=== PATIENT | female | born 1950 | race Caucasian/White ===

== ENCOUNTER → 2019-02-03 | Outpatient (CLI) | payer MEDICARE ==
--- NOTE | 2019-02-04 15:08 | US ---
EXAMINATION TYPE: US kidneys/renal and bladder DATE OF EXAM: 02/03/2019 COMPARISON: NONE CLINICAL HISTORY: Renal Cyst N28.1. History of kidney stones EXAM MEASUREMENTS: Right Kidney: 11.6 x 5.6 x 5.4 cm Left Kidney: 11.0 x 5.3 x 5.3 cm Difficult and limited study due to patient body habitus Right Kidney: no hydronephrosis, multiple echogenic foci scattered throughout Left Kidney: no hydronephrosis, 1.9 x 1.8 x 2.0cm nearly anechoic area mid pole, multiple echogenic f oci scattered throughout with largest measuring 0.8cm inferior pole Bladder: not fully distended Bilateral Jets seen: left jet not seen IMPRESSION: 1. Bilateral nonobstructing renal calculi measuring up to 0.8 cm on the left. No hydronephrosis of ei ther kidney. 2. 2.0 cm left renal sinus cyst.
== END | disposition home or self-care (01) ==
LOC: RADUSWWP 16:20
PROVIDERS: ATTEND Internal Medicine Nephrology
DX: N20.0 Calculus of kidney (principal); N28.1 Cyst of kidney, acquired
CPT/HCPCS: 76770

== ENCOUNTER 2020-07-15 11:14 | Day surgery (SDC) | payer MEDICARE ==
[2020-07-15 12:36] VITALS: TEMP 97.8
[2020-07-15] MEDS ORDERED: LIDOCAINE 1% (10MG/ML) FOR IV START INTRADERMA ONE (12:45)
[2020-07-15] MEDS ORDERED: LACTATED RINGERS 1,000 ML IV ONE (12:45)
[2020-07-15] MEDS ORDERED: LIDOCAINE 1% INJ 10MG/ML (20 ML MDV) ONE (13:27)
[2020-07-15] MEDS ORDERED: PROPOFOL 10 MG/ML 20 ML VIAL IV ONE (13:27)
--- NOTE | 2020-07-15 13:47 | P.PCN ---
Date of Procedure: 07/15/20 Procedure(s) Performed: BRIEF HISTORY: Patient is a 69-year-old pleasant female scheduled for an elective colonoscopy as a part of screening for colorectal neoplasia. PROCEDURE PERFORMED: Colonoscopy with snare polypectomy. PREOPERATIVE DIAGNOSIS: Screening for colon cancer. IV sedation per Anesthesia. PROCEDURE: After informed consent was obtained, the patient, was brought into the endoscopy unit. IV sedation was administered by Anesthesia under continuous monitoring. Digital rectal examination was normal. Initially the Olympus CF-160 flexible video colonoscope was then inserted in the rectum, gradually advanced into the cecum without any difficulty. Careful examination was performed as the scope was gradually being withdrawn. Ileocecal valve and the appendiceal orifice were visualized and appeared normal. Prep was excellent. Mucosa of the cecum, ascending colon, transverse colon, descending colon, sigmoid colon, appeared normal. In the mid rectum there was a 2 cm broad-based polyp removed by piecemeal snare polypectomy and complete polypectomy was accomplished Retroflexion was performed in the rectum and no lesions were seen. The patient tolerated the procedure well. IMPRESSION: 2 cm broad-based mid rectal polyp status post snare polypectomy Rest of the colon appeared normal RECOMMENDATIONS: Findings of this examination were discussed with the patient as well as her family. She was advised to follow with the biopsy results. If the biopsy shows an adenoma she can have a repeat colonoscopy in 3 years .
[2020-07-15] MEDS ORDERED: LACTATED RINGERS 1,000 ML IV SCH (13:52)
[2020-07-15 14:23] VITALS: BP 132/72; PULSE 67; RESP 20
== END 2020-07-15 14:37 | disposition home or self-care (01) ==
LOC: ORWHC2ENDO 11:14
PROVIDERS: ATTEND Internal Medicine Gastroenterology
DX: Z12.11 Encounter for screening for malignant neoplasm of colon (principal); D12.8 Benign neoplasm of rectum; I10 Essential (primary) hypertension; E78.5 Hyperlipidemia, unspecified; R73.03 Prediabetes; Z79.899 Other long term (current) drug therapy; Z97.2 Presence of dental prosthetic device (complete) (partial); Z88.2 Allergy status to sulfonamides
CPT/HCPCS: 45385; J2001; J2704; 88305

== ENCOUNTER 2021-03-23 18:06 | Emergency (ER) | payer MEDICARE ==
--- NOTE | 2021-03-23 18:46 | CT ---
EXAMINATION TYPE: CT brain cspine wo con DATE OF EXAM: 03/23/2021 COMPARISON: None HISTORY: Fall. CT DLP: 1366.4 mGycm Automated exposure control for dose reduction was used. There is no mass effect or midline shift. There is no sign of intracranial hemorrhage. There is hyper ostosis frontalis. The calvarium is intact. Skull base is intact. IMPRESSION: Negative unenhanced head CT scan.
[2021-03-23 19:53] VITALS: BP 117/66; PULSE 63; RESP 16; TEMP 97.8
--- NOTE | 2021-03-23 19:54 | ED ---
General Adult HPI - General Stated complaint: fall Time Seen by Provider: 03/23/21 18:10 Source: patient, RN notes reviewed Mode of arrival: ambulatory Limitations: no limitations - History of Present Illness Initial comments: 70-year-old female presents emergency Department with chief complaint of fall, head injury. Patient states she tripped and fell discharge her head didn't lose conscious. Patient complains primarily of headache, head pain but no significant neck pain. Denies any. Fever or Chills. Patient denies any extremity pain no blurred vision or focal weakness. - Related Data Home Medications Medication Instructions Recorded Confirmed ARIPiprazole 15 mg PO DAILY 07/15/20 07/15/20 Amoxicillin 875 mg PO DAILY 07/15/20 07/15/20 DULoxetine HCL [Cymbalta] 60 mg PO DAILY 07/15/20 07/15/20 Enalapril Maleate 2.5 mg PO DAILY 07/15/20 07/15/20 Ergocalciferol (Vitamin D2) 50,000 mcg PO WEEKLY 07/15/20 07/15/20 [Vitamin D2 (50,000 Iu)] Simvastatin 80 mg PO DAILY 07/15/20 07/15/20 lamoTRIgine 200 mg PO BID 07/15/20 07/15/20 Allergies Allergy/AdvReac Type Severity Reaction Status Date / Time Sulfa (Sulfonamide Allergy Confusion Verified 07/15/20 12:39 Antibiotics) Review of Systems ROS Statement: Those systems with pertinent positive or pertinent negative responses have been documented in the HPI. ROS Other: All systems not noted in ROS Statement are negative. General Exam General appearance: alert, in no apparent distress Head exam: Present: atraumatic, normocephalic, normal inspection Eye exam: Present: normal appearance, PERRL, EOMI. Absent: scleral icterus, conjunctival injection, periorbital swelling Respiratory exam: Present: normal lung sounds bilaterally. Absent: respiratory distress, wheezes, rales, rhonchi, stridor Cardiovascular Exam: Present: regular rate, normal rhythm, normal heart sounds. Absent: systolic murmur, diastolic murmur, rubs, gallop, clicks Neurological exam: Present: alert, oriented X3, CN II-XII intact, reflexes normal. Absent: motor sensory deficit Skin exam: Present: warm, dry, intact, normal color. Absent: rash Medical Decision Making - Medical Decision Making CT of the brain and C-spine were read no acute abnormality. Patient discharged in stable condition return parameters discussed. Disposition Clinical Impression: Head contusion Disposition: HOME SELF-CARE Condition: Stable Instructions (If sedation given, give patient instructions): Head Injury (ED) Additional Instructions: Please return to the Emergency Department if symptoms worsen or any other concerns. Is patient prescribed a controlled substance at d/c from ED?: No Referrals: Bjorn Velazquez DO [Primary Care Provider] - 1-2 days Time of Disposition: 19:54
== END 2021-03-23 20:40 | disposition home or self-care (01) ==
LOC: EC 18:06
DX: S00.83XA Contusion of other part of head, initial encounter (principal); Z79.899 Other long term (current) drug therapy; W01.0XXA Fall on same level from slipping, tripping and stumbling without subsequent striking against object, initial encounter
CPT/HCPCS: 70450; 72125; 99284

== ENCOUNTER 2021-11-30 00:44 | Emergency (ER) | payer MEDICARE ==
[2021-11-30] MEDS ORDERED: SODIUM CHLORIDE 0.9% 500 ML 500 ML IV STA ×2 (00:49→02:58)
[2021-11-30] MEDS ORDERED: ONDANSETRON 4 MG/2 ML VIAL IVP STA (00:49)
[2021-11-30] MEDS ORDERED: SODIUM CHLORIDE 0.9% 1,000 ML IV STA (00:49)
--- NOTE | 2021-11-30 00:49 | ED ---
Weakness HPI - General Stated complaint: NVD Time Seen by Provider: 11/30/21 00:48 Source: RN notes reviewed, old records reviewed Limitations: no limitations - History of Present Illness Initial comments: This is a 71-year-old female to the emergency department for evaluation patient presents today for nausea vomiting and diarrhea. No pain. Patient states she comes from a facility were 2 other people at the same issue going on right now and has been persistent. Patient has no other complaints no fevers no travel history. Patient has symptoms 3 days very getting worse or not getting better MD Complaint: generalized weakness, lack of energy -: days(s) (3) Location: generalized Severity: moderate Severity scale (1-10): 4 Consistency: constant Improves with: none Worsens with: none Context: recent illness (Nausea vomiting diarrhea), history of similar Associated Symptoms: loss of appetite, nausea/vomiting, other (Diarrhea) - Related Data Home Medications Medication Instructions Recorded Confirmed ARIPiprazole 15 mg PO DAILY 07/15/20 07/15/20 Amoxicillin 875 mg PO DAILY 07/15/20 07/15/20 DULoxetine HCL [Cymbalta] 60 mg PO DAILY 07/15/20 07/15/20 Enalapril Maleate 2.5 mg PO DAILY 07/15/20 07/15/20 Ergocalciferol (Vitamin D2) 50,000 mcg PO WEEKLY 07/15/20 07/15/20 [Vitamin D2 (50,000 Iu)] Simvastatin 80 mg PO DAILY 07/15/20 07/15/20 lamoTRIgine 200 mg PO BID 07/15/20 07/15/20 Allergies Allergy/AdvReac Type Severity Reaction Status Date / Time Sulfa (Sulfonamide Allergy Confusion Verified 11/30/21 00:54 Antibiotics) Review of Systems ROS Statement: Those systems with pertinent positive or pertinent negative responses have been documented in the HPI. ROS Other: All systems not noted in ROS Statement are negative. Past Medical History Past Medical History: Hyperlipidemia, Hypertension Additional Past Medical History / Comment(s): kidney stone History of Any Multi-Drug Resistant Organisms: None Reported Past Surgical History: Cholecystectomy Past Psychological History: Bipolar, Depression Smoking Status: Never smoker Past Alcohol Use History: None Reported Past Drug Use History: None Reported General Exam General appearance: alert, in no apparent distress Head exam: Present: atraumatic, normocephalic, normal inspection Eye exam: Present: normal appearance, PERRL, EOMI. Absent: scleral icterus, conjunctival injection, periorbital swelling ENT exam: Present: normal exam, mucous membranes dry Neck exam: Present: normal inspection. Absent: tenderness, meningismus, lymphadenopathy Respiratory exam: Present: normal lung sounds bilaterally. Absent: respiratory distress, wheezes, rales, rhonchi, stridor Cardiovascular Exam: Present: normal rhythm, tachycardia, normal heart sounds. Absent: systolic murmur, diastolic murmur, rubs, gallop, clicks GI/Abdominal exam: Present: soft, normal bowel sounds. Absent: distended, te nderness, guarding, rebound, rigid Extremities exam: Present: normal inspection, full ROM, normal capillary refill. Absent: tenderness, pedal edema, joint swelling, calf tenderness Back exam: Present: normal inspection Neurological exam: Present: alert, oriented X3, CN II-XII intact Psychiatric exam: Present: normal affect, normal mood Skin exam: Present: warm, dry, intact, normal color. Absent: rash Course Vital Signs 11/30/21 00:47 Temperature 98 F Pulse Rate 115 H Respiratory 18 Rate Blood Pressure 106/87 O2 Sat by Pulse 96 Oximetry - Reevaluation(s) Reevaluation #1: 11/30/21 03:28 Medical record is reviewed Reevaluation #2: 11/30/21 03:28 Patient symptoms are significantly improved here in the ER physician able to eat and drink Reevaluation #3: 11/30/21 03:28 Patient informed of results and questions answered feels good for discharge Medical Decision Making - Medical Decision Making 71 female to the emergency department for evaluation patient presents today for evaluation regards to nausea vomiting and diarrhea with no pain. Patient's mi ldly dehydrated given significant IV resuscitation here in the emergency room feels improved can eat and drink and can be discharged home - Lab Data Result diagrams: 11/30/21 01:19 11/30/21 01:19 Lab Results 11/30/21 11/30/21 11/30/21 Range/Units 01:19 01:19 01:19 WBC 10.2 (3.8-10.6) k/uL RBC 4.15 (3.80-5.40) m/uL Hgb 12.9 (11.4-16.0) gm/dL Hct 41.0 (34.0-46.0) % MCV 98.6 (80.0-100.0) fL MCH 31.1 (25.0-35.0) pg MCHC 31.5 (31.0-37.0) g/dL RDW 12.2 (11.5-15.5) % Plt Count 275 (150-450) k/uL MPV 7.1 Neutrophils % 81 % Lymphocytes % 9 % Monocytes % 5 % Eosinophils % 4 % Basophils % 0 % Neutrophils # 8.3 H (1.3-7.7) k/uL Lymphocytes # 0.9 L (1.0-4.8) k/uL Monocytes # 0.6 (0-1.0) k/uL Eosinophils # 0.4 (0-0.7) k/uL Basophils # 0.0 (0-0.2) k/uL Sodium 140 (137-145) mmol/L Potassium 4.1 (3.5-5.1) mmol/L Chloride 107 (98-107) mmol/L Carbon Dioxide 18 L (22-30) mmol/L Anion Gap 15 mmol/L BUN 32 H (7-17) mg/dL Creatinine 2.28 H (0.52-1.04) mg/dL Est GFR (CKD-EPI)AfAm 24 (>60 ml/min/1.73 sqM) Est GFR (CKD-EPI)NonAf 21 (>60 ml/min/1.73 sqM) Glucose 159 H (74-99) mg/dL Plasma Lactic Acid Lupillo 1.4 (0.7-2.0) mmol/L Calcium 9.0 (8.4-10.2) mg/dL Phosphorus 3.4 (2.5-4.5) mg/dL Magnesium 1.9 (1.6-2.3) mg/dL Total Bilirubin 0.6 (0.2-1.3) mg/dL AST 41 H (14-36) U/L ALT 22 (4-34) U/L Alkaline Phosphatase 136 H (38-126) U/L Total Protein 6.6 (6.3-8.2) g/dL Albumin 4.1 (3.5-5.0) g/dL Lipase 475 H (23-300) U/L Disposition Clinical Impression: Dehydration, Nausea & vomiting, Gastroenteritis Disposition: HOME SELF-CARE Condition: Good Instructions (If sedation given, give patient instructions): Acute Nausea and Vomiting (ED), Acute Diarrhea (ED) Is patient prescribed a controlled substance at d/c from ED?: No Referrals: Bjorn Velazquez DO [Primary Care Provider] - 1-2 days Time of Disposition: 04:00
[2021-11-30 00:54] VITALS: RESP 18
[2021-11-30 01:25] LABS: Basophils % (A) 0 %; Eosinophils # (A) 0.4 k/uL (0-0.7); Eosinophils % (A) 4 %; HGB 12.9 gm/dL (11.4-16.0); Lymphocytes # (A) 0.9 k/uL (1.0-4.8); Lymphocytes % (A) 9 %; MCH 31.1 pg (25.0-35.0); MCHC 31.5 g/dL (31.0-37.0); MCV 98.6 fL (80.0-100.0); Mean Platelet Volume 7.1; Monocytes # (A) 0.6 k/uL (0-1.0); Monocytes % (A) 5 %; Neutrophils # (A) 8.3 k/uL (1.3-7.7); Neutrophils % (A) 81 %; Platelet Count 275 k/uL (150-450); RBC 4.15 m/uL (3.80-5.40); RDW 12.2 % (11.5-15.5); WBC 10.2 k/uL (3.8-10.6)
[2021-11-30 01:41] LABS: Albumin 4.1 g/dL (3.5-5.0); Magnesium 1.9 mg/dL (1.6-2.3); Phosphorus 3.4 mg/dL (2.5-4.5); Potassium 4.1 mmol/L (3.5-5.1); Total Bilirubin 0.6 mg/dL (0.2-1.3); Total Protein 6.6 g/dL (6.3-8.2)
[2021-11-30] MEDS ORDERED: PROCHLORPERAZINE INJ 10 MG/2 ML VIAL IVP STA (03:24)
[2021-11-30] MEDS ORDERED: ONDANSETRON 4 MG ODT STARTER PACK 2 TAB BTL PO STA (03:26)
[2021-11-30 03:55] VITALS: BP 125/56; PULSE 76; TEMP 98.6
== END 2021-11-30 04:07 | disposition home or self-care (01) ==
LOC: EC 00:44
DX: K52.9 Noninfective gastroenteritis and colitis, unspecified (principal); E86.0 Dehydration; Z88.2 Allergy status to sulfonamides
CPT/HCPCS: 36415; 93005; 80053; 83605; 83690; 83735; 84100; 85025; 99285; 96374; 96361; 96375; J0780; J2405; S0119

== ENCOUNTER 2022-02-25 10:17 | Day surgery (SDC) | payer MEDICARE ==
[2022-02-24 10:48] VITALS: BMI 30.9
[~2022-02-25 10:17] MED LIST: LACTATED RINGERS 1,000 ML IV SCH
[2022-02-25 11:06] VITALS: RESP 18; TEMP 97.4
[2022-02-25] MEDS ORDERED: PROPOFOL 10 MG/ML 20 ML VIAL IV ONE (12:00)
[2022-02-25] MEDS ORDERED: LIDOCAINE 2% INJ 20 MG/ML (2 ML VIAL) ONE (12:00)
--- NOTE | 2022-02-25 12:12 | P.PCN ---
Date of Procedure: 02/25/22 Procedure(s) Performed: BRIEF HISTORY: Patient is a 71-year-old, pleasant, white female scheduled for an upper endoscopy as a part of evaluation of epigastric pain for the last 2 months duration. She was recently started on omeprazole 20 mg twice daily and symptoms are gradually improving.. PROCEDURE PERFORMED: Esophagogastroduodenoscopy with biopsy. PREOPERATIVE DIAGNOSIS: Chronic epigastric pain.. IV sedation per anesthesia. PROCEDURE: After informed consent was obtained, the patient was brought into the endoscopy unit. IV sedation was administered by Anesthesia under continuous monitoring. Initially the Olympus GIF-140 video endoscope was inserted into the mouth. Esophagus intubated without any difficulty. It was gradually advanced into the stomach and duodenum and carefully examined. The bulb and the second part of the duodenum appeared normal. The scope at this time was withdrawn to the stomach, adequately insufflated with air, and upon careful examination, mucosa of the antrum, had a 2 cm round, smooth submucosal lesion along the lesser curvature and multiple biopsies were done from this area. Rest of the body, cardia and the fundus appeared normal. The scope was then withdrawn into the esophagus. All hiatal hernia noted. The GE junction was located at 39 cm from the incisors. The esophagus appeared normal. There were no erosions or ulcerations seen, biopsies were done from the distal esophagus and the patient tolerated the procedure well. IMPRESSION: 1. 2 cm round and smooth submucosal lesion in the antrum of the stomach along the lesser curvature status post multiple biopsies 2. Small hiatal hernia but no evidence of esophagitis.. RECOMMENDATIONS: The findings of this examination were discussed with the patient as well as a family. She was advised to follow with the biopsy results. In the meantime she will continue with omeprazole 20 mg twice daily and follow antireflux measures.. Follow up in office in 3-4 weeks.
[2022-02-25 12:32] VITALS: PULSE 66
[2022-02-25 13:51] VITALS: BP 134/81
== END 2022-02-25 13:45 | disposition home or self-care (01) ==
LOC: ORWHC2ENDO 10:17
PROVIDERS: ATTEND Internal Medicine Gastroenterology
DX: K29.50 Unspecified chronic gastritis without bleeding (principal); R10.13 Epigastric pain
CPT/HCPCS: 43239; J2704; J2001; 88305; 88342

== ENCOUNTER → 2022-08-12 | Outpatient (CLI) | payer MEDICARE | END | disposition home or self-care (01) | LOC: LABWHC1 11:39 | PROVIDERS: ATTEND Family Medicine | DX: R73.01 Impaired fasting glucose (principal) | CPT/HCPCS: 36415; 83036 ==

== ENCOUNTER → 2022-10-08 | Outpatient (CLI) | payer MEDICARE ==
--- NOTE | 2022-10-08 13:30 | MR ---
EXAMINATION TYPE: MR brain and iac wo/w con DATE OF EXAM: 10/08/2022 COMPARISON: None HISTORY: Lightheaded and unsteady, dizziness TECHNIQUE: Multiplanar, multisequence images of the brain and brainstem is performed without and with IV contras t, utilizing 9 mL intravenous Gadavist . FINDINGS: Diffusion weighted images demonstrate no evidence of a recent infarct or other diffusion ab normality. There is a faint abnormal signal on T2 within the nery which is felt artifactual. There is a mild generalized degenerative change. Midline structures demonstrate normal morphology. T he craniocervical junction appears within normal limits. Post contrast images demonstrate no abnorma l enhancement. The dural venous sinuses appear patent. The visualized sinuses are clear and the globe s are intact. There is no evidence of cerebellopontine angle mass or acoustic schwannoma. There is hyperostosis fro ntalis interna. IMPRESSION: 1. Degenerative and nonspecific white matter change with no evidence of cerebellopontine angle mass o r acoustic schwannoma.
== END | disposition home or self-care (01) ==
LOC: RADMRIMAIN 08:35
PROVIDERS: ATTEND Otolaryngology
DX: R90.82 White matter disease, unspecified (principal); R42 Dizziness and giddiness
CPT/HCPCS: 70553; A9585

== ENCOUNTER 2022-11-13 13:45 | Emergency (ER) | payer MEDICARE ==
[2022-11-13 13:57] VITALS: RESP 18
[2022-11-13] MEDS ORDERED: SODIUM CHLORIDE 0.9% 1,000 ML IV STA (14:19)
[2022-11-13] MEDS ORDERED: MECLIZINE 12.5 MG TAB PO STA (14:22)
--- NOTE | 2022-11-13 14:52 | ED ---
General Adult HPI - General Chief complaint: Dizziness Stated complaint: Dizziness Time Seen by Provider: 11/13/22 14:09 Source: patient, EMS Mode of arrival: EMS Limitations: no limitations - History of Present Illness Initial comments: Patient is a 72-year-old female who presents from her living facility for vertigo symptoms. She doesn't history of dementia. Is currently alert and oriented 4. States she has a lightheadedness sensation and less than the room spinning sensation. States it is been on and off since . He currently has no symptoms. Denies any known palliative or provocative factors for the symptoms. Denies any chest pain or shortness of breath. Denies any recent injuries. Denies abdominal pain, nausea, vomiting. Denies being on blood thinners. His no other acute complaints at this time. Denies any weakness, nu mbness, lightheadedness. Presents for further evaluation. - Related Data Home Medications Medication Instructions Recorded Confirmed ARIPiprazole 15 mg PO DAILY 07/15/20 02/25/22 DULoxetine HCL [Cymbalta] 60 mg PO DAILY 07/15/20 02/25/22 Simvastatin [Zocor] 80 mg PO DAILY 07/15/20 02/25/22 lamoTRIgine 200 mg PO BID 07/15/20 02/25/22 Aspirin [Adult Low Dose Aspirin EC] 81 mg PO DAILY 02/24/22 02/25/22 Latanoprost/Pf [Latanoprost 0.005% 1 drop BOTH EYES DAILY 02/24/22 02/25/22 Eye Drop] Metoprolol Tartrate 12.5 mg PO BID 02/24/22 02/25/22 Omeprazole 20 mg PO BID 02/24/22 02/25/22 Timolol 0.25% Ophth Soln [Timoptic 1 drop BOTH EYES DAILY 02/24/22 02/25/22 0.25% Ophth Soln] Previous Rx's Medication Instructions Recorded Cephalexin [Keflex] 500 mg PO Q12HR 7 Days #14 cap 11/13/22 Allergies Allergy/AdvReac Type Severity Reaction Status Date / Time Sulfa (Sulfonamide Allergy Confusion Verified 11/13/22 13:57 Antibiotics) Review of Systems ROS Statement: Those systems with pertinent positive or pertinent negative responses have been documented in the HPI. Review of Systems: CONST: Denies fever EYES: Denies blurry vision ENT: Denies nasal congestion C/V: Denies Chest pain RESP: Denies shortness of breath GI: Denies abdominal pain : Denies dysuria SKIN: Denies rash. MSK: Denies joint pain. NEURO: Denies headache ROS Other: All systems not noted in ROS Statement are negative. Past Medical History Past Medical History: GERD/Reflux, Hyperlipidemia, Hypertension Additional Past Medical History / Comment(s): Hx kidney stones. History of Any Multi-Drug Resistant Organisms: None Reported Past Surgical History: Cholecystectomy Additional Past Surgical History / Comment(s): 2 stents for kidney stones, later removed. Past Anesthesia/Blood Transfusion Reactions: No Reported Reaction Past Psychological History: Bipolar, Depression Smoking Status: Never smoker Past Alcohol Use History: None Reported Past Drug Use History: None Reported - Past Family History Mother Family Medical History: Cancer Additional Family Medical History / Comment(s): Skin cancer. Father Family Medical History: Cancer Additional Family Medical History / Comment(s): Skin cancer. General Exam - General Exam Comments Initial Comments: General: Appears in no acute distress. HEAD: Normal with no signs of head trauma. EYES: PERRLA, EOMI, conjunctiva normal, no discharge. Pupils are 2 mm and equal bilaterally. ENT: Hearing grossly intact, normal oropharynx. RESPIRATORY: Clear breath sounds bilaterally. No wheezes, rales, or rhonchi. C/V: Regular rate and rhythm. S1 and S2 auscultated, peripheral pulses 2+ and intact throughout ABD: Abd is soft, nontender, nondistended EXT: Normal range of motion, no obvious deformity SKIN: No rashes or lesions observed on exposed skin. NEURO: Alert and oriented x 4. Cranial nerves II-XII intact. No focal sensory or strength deficits. GCS of 15. NIH of 0. Limitations: no limitations Course Vital Signs 11/13/22 11/13/22 11/13/22 13:50 15:57 16:35 Temperature 98.1 F Pulse Rate 64 65 Pulse Rate [ 65 Pulse Oximetery ] Respiratory 18 18 Rate Blood Pressure 157/75 153/73 Blood Pressure 152/80 [Left Arm Sitting] Blood Pressure 161/74 [Left Arm Standing] Blood Pressure 166/81 [Left Arm Supine] O2 Sat by Pulse 94 L 93 L Oximetry 11/13/22 11/13/22 18:06 19:45 Temperature 98.2 F Pulse Rate 99 75 Pulse Rate [ Pulse Oximetery ] Respiratory 18 18 Rate Blood Pressure 192/75 147/75 Blood Pressure [Left Arm Sitting] Blood Pressure [Left Arm Standing] Blood Pressure [Left Arm Supine] O2 Sat by Pulse 94 L 93 L Oximetry Medical Decision Making - Medical Decision Making Was pt. sent in by a medical professional or institution (, MATHEW, HEALTH CARE ATTORNEY, urgent care, hospital, or fpc...) When possible be specific @ -No Did you speak to anyone other than the patient for history (EMS, parent, family, police, friend...)? What history was obtained from this source @ -No Did you review nursing and triage notes (agree or disagree)? Why? @ -I reviewed and agree with nursing and triage notes Were old charts reviewed (outside hosp., previous admission, EMS record, old EKG, old radiological studies, urgent care reports/EKG's, fpc records)? Report findings @ -No old charts were reviewed Differential Diagnosis (chest pain, altered mental status, abdominal pain women, abdominal pain men, vaginal bleeding, weakness, fever, dyspnea, syncope, headache, dizziness, GI bleed, back pain, seizure, CVA, palpatations, mental health, musculoskeletal)? @ -Differential Dizziness: Benign paroxysmal positional Vertigo, Menieres disease, otitis media, acoustic neuroma, vertebrobasilar insufficiency, cerebellar stroke, encephalitis, hypovolemic, arrhythmia, coronary artery syndrome, anemia, this is not meant to be an all-inclusive list EKG interpreted by me (3pts min.). @ -As above X-rays interpreted by me (1pt min.). @ -Chest x-ray shows no obvious acute cardio bony process. CT interpreted by me (1pt min.). @ -CT brain shows no obvious acute intracranial process or injury. U/S interpreted by me (1pt. min.). @ -None done What testing was considered but not performed or refused? (CT, X-rays, U/S, labs)? Why? @ -None What meds were considered but not given or refused? Why? @ -None Did you discuss the management of the patient with other professionals (professionals i.e. , MATHEW, HEALTH CARE ATTORNEY, lab, RT, psych nurse, addiction social worker, education and training manager, teacher, information security officer, nurse case management)? Give summary @ -No Was smoking cessation discussed for >3mins.? @ -No Was critical care preformed (if so, how long)? @ -No Were there social determinants of health that impacted care today? How? (Homelessness, low income, unemployed, alcoholism, drug addiction, transportation, low edu. Level, literacy, decrease access to med. care, penitentiary, rehab)? @ -No Was there de-escalation of care discussed even if they declined (Discuss DNR or withdrawal of care, Hospice)? DNR status @ -No What co-morbidities impacted this encounter? (DM, HTN, Smoking, COPD, CAD, Cancer, CVA, ARF, Chemo, Hep., AIDS, mental health diagnosis, sleep apnea, morbid obesity)? @ -History of vertigo Was patient admitted / discharged? Hospital course, mention meds given and route, prescriptions, significant lab abnormalities, going to OR and other pertinent info. @ -Patient presents from a group living situation complaining of lightheadedness and vertiginous type symptoms since Wednesday. Currently has no acute complaints at this time. Denies any symptoms. We will obtain basic labs, screening EKG, chest x-ray, vital signs, urinalysis. She'll be given meclizine empirically as well as 1 L fluid bolus. Orthostatic vital signs be obtained after the fluid bolus. Patient was in agreement this plan. EKG showed no signs of acute ischemia.Patient's imaging is unremarkable. Patient's labs are remarkable for CK D unchanged from baseline as well as a borderline UTI. Following fluids, orthostatics were negative. We will give additional fluids if she is still symptomatic and obtain CT imaging. She was in agreement this plan. CT imaging was negative as well. On reevaluation this time she is feeling improved. Symptoms resolved. She would like to go home. I believe is reasonable. We will treat her UTI. She was in agreement this plan. Strict return precautions were discussed. I will provide the patient with a prescription for Keflex. I instructed the patient to follow up with their PCP in the next 1-3 days. I explained that the patient should return to the emergency department if they experience any worsening symptoms. Strict return precautions were discussed with the patient. The patient expressed understanding of these instructions. I answered all questions that the patient had. The patient was discharged home in good condition with their prescriptions and follow up information. Undiagnosed new problem with uncertain prognosis? @ -No Drug Therapy requiring intensive monitoring for toxicity (Heparin, Nitro, Insulin, Cardizem)? @ -No Were any procedures done? @ -No Diagnosis/symptom? @ -Lightheadedness,uti Acute, or Chronic, or Acute on Chronic? @ -Acute Uncomplicated (without systemic symptoms) or Complicated (systemic symptoms)? @ -complicated Side effects of treatment? @ -No Exacerbation, Progression, or Severe Exacerbation? @ -No Poses a threat to life or bodily function? How? (Chest pain, [place], [place], pneumonia, PE, COPD, DKA, ARF, appy, cholecystitis, CVA, Diverticulitis, Homicidal, Suicidal, threat to staff... and all critical care pts) @ -No - Lab Data Result diagrams: 11/13/22 14:30 11/13/22 14:30 Lab Results 11/13/22 11/13/22 11/13/22 Range/Units 14:30 14:30 14:30 WBC 6.7 (3.8-10.6) k/uL RBC 3.96 (3.80-5.40) m/uL Hgb 12.7 (11.4-16.0) gm/dL Hct 38.7 (34.0-46.0) % MCV 97.7 (80.0-100.0) fL MCH 32.2 (25.0-35.0) pg MCHC 32.9 (31.0-37.0) g/dL RDW 12.4 (11.5-15.5) % Plt Count 267 (150-450) k/uL MPV 7.6 Neutrophils % 65 % Lymphocytes % 21 % Monocytes % 6 % Eosinophils % 5 % Basophils % 1 % Neutrophils # 4.3 (1.3-7.7) k/uL Lymphocytes # 1.4 (1.0-4.8) k/uL Monocytes # 0.4 (0-1.0) k/uL Eosinophils # 0.4 (0-0.7) k/uL Basophils # 0.1 (0-0.2) k/uL Sodium 139 (137-145) mmol/L Potassium 4.5 (3.5-5.1) mmol/L Chloride 104 (98-107) mmol/L Carbon Dioxide 26 (22-30) mmol/L Anion Gap 9 mmol/L BUN 34 H (7-17) mg/dL Creatinine 2.05 H (0.52-1.04) mg/dL Est GFR (CKD-EPI)AfAm 27 (>60 ml/min/1.73 sqM) Est GFR (CKD-EPI)NonAf 24 (>60 ml/min/1.73 sqM) Glucose 119 H (74-99) mg/dL Calcium 9.1 (8.4-10.2) mg/dL Magnesium 2.4 H (1.6-2.3) mg/dL Total Bilirubin 0.5 (0.2-1.3) mg/dL AST 21 (14-36) U/L ALT 15 (4-34) U/L Alkaline Phosphatase 99 (38-126) U/L Total Protein 6.9 (6.3-8.2) g/dL Albumin 4.0 (3.5-5.0) g/dL Urine Color Light Yellow Urine Appearance Clear (Clear) Urine pH 7.0 (5.0-8.0) Ur Specific [place] 1.007 (1.001-1.035) Urine Protein Negative (Negative) Urine Glucose (UA) Negative (Negative) Urine Ketones Negative (Negative) Urine Blood Negative (Negative) Urine Nitrite Negative (Negative) Urine Bilirubin Negative (Negative) Urine Urobilinogen <2.0 (<2.0) mg/dL Ur Leukocyte Esterase Moderate H (Negative) Urine RBC 1 (0-5) /hpf Urine WBC 20 H (0-5) /hpf Influenza Type A (PCR) (Not Detectd) Influenza Type B (PCR) (Not Detectd) RSV (PCR) (Not Detectd) SARS-CoV-2 (PCR) (Not Detectd) 11/13/22 Range/Units 14:30 WBC (3.8-10.6) k/uL RBC (3.80-5.40) m/uL Hgb (11.4-16.0) gm/dL Hct (34.0-46.0) % MCV (80.0-100.0) fL MCH (25.0-35.0) pg MCHC (31.0-37.0) g/dL RDW (11.5-15.5) % Plt Count (150-450) k/uL MPV Neutrophils % % Lymphocytes % % Monocytes % % Eosinophils % % Basophils % % Neutrophils # (1.3-7.7) k/uL Lymphocytes # (1.0-4.8) k/uL Monocytes # (0-1.0) k/uL Eosinophils # (0-0.7) k/uL Basophils # (0-0.2) k/uL Sodium (137-145) mmol/L Potassium (3.5-5.1) mmol/L Chloride (98-107) mmol/L Carbon Dioxide (22-30) mmol/L Anion Gap mmol/L BUN (7-17) mg/dL Creatinine (0.52-1.04) mg/dL Est GFR (CKD-EPI)AfAm (>60 ml/min/1.73 sqM) Est GFR (CKD-EPI)NonAf (>60 ml/min/1.73 sqM) Glucose (74-99) mg/dL Calcium (8.4-10.2) mg/dL Magnesium (1.6-2.3) mg/dL Total Bilirubin (0.2-1.3) mg/dL AST (14-36) U/L ALT (4-34) U/L Alkaline Phosphatase (38-126) U/L Total Protein (6.3-8.2) g/dL Albumin (3.5-5.0) g/dL Urine Color Urine Appearance (Clear) Urine pH (5.0-8.0) Ur Specific [place] (1.001-1.035) Urine Protein (Negative) Urine Glucose (UA) (Negative) Urine Ketones (Negative) Urine Blood (Negative) Urine Nitrite (Negative) Urine Bilirubin (Negative) Urine Urobilinogen (<2.0) mg/dL Ur Leukocyte Esterase (Negative) Urine RBC (0-5) /hpf Urine WBC (0-5) /hpf Influenza Type A (PCR) Not Detected (Not Detectd) Influenza Type B (PCR) Not Detected (Not Detectd) RSV (PCR) Not Detected (Not Detectd) SARS-CoV-2 (PCR) Not Detected (Not Detectd) - EKG Data -: EKG Interpreted by Me EKG Comments: 12-lead Electrocardiogram Interpretation Note EKG was reviewed and interpreted by myself. 12-lead ECG performed at 1417 is interpreted by me as revealing normal sinus rhythm with first-degree AV block at a rate of 64 beats per minute. [place] is normal. PA interval is 232 ms, QRS duration is 95 ms, QTc is 408 ms.. There were no ST or T wave abnormalities to suggest myocardial ischemia or injury. R wave progression across the precordium was satisfactory. By my interpretation this EKG is non-diagnostic for acute ischemia. Disposition Clinical Impression: UTI (urinary tract infection) Disposition: HOME SELF-CARE Condition: Good Instructions (If sedation given, give patient instructions): Urinary Tract Infection in Women (ED) Prescriptions: Cephalexin [Keflex] 500 mg PO Q12HR 7 Days #14 cap Is patient prescribed a controlled substance at d/c from ED?: No Referrals: Bjorn Velazquez DO [Primary Care Provider] - 1-2 days Time of Disposition: 18:15
--- NOTE | 2022-11-13 15:02 | XR ---
EXAMINATION TYPE: XR chest 2V DATE OF EXAM: 11/13/2022 COMPARISON: None HISTORY: 72-year-old female with weakness TECHNIQUE: AP and lateral views FINDINGS: Low lung volumes and crowded vascular markings. Heart normal size. Strandy atelectasis at the right b ase. No consolidation or pleural effusion. IMPRESSION: Hypoventilatory changes. Strandy atelectasis right base. Otherwise, no acute process seen.
[2022-11-13 15:03] LABS: Basophils # (A) 0.1 k/uL (0-0.2); Basophils % (A) 1 %; Eosinophils # (A) 0.4 k/uL (0-0.7); Eosinophils % (A) 5 %; HCT 38.7 % (34.0-46.0); HGB 12.7 gm/dL (11.4-16.0); Lymphocytes # (A) 1.4 k/uL (1.0-4.8); Lymphocytes % (A) 21 %; MCH 32.2 pg (25.0-35.0); MCHC 32.9 g/dL (31.0-37.0); MCV 97.7 fL (80.0-100.0); Mean Platelet Volume 7.6; Monocytes # (A) 0.4 k/uL (0-1.0); Monocytes % (A) 6 %; Neutrophils # (A) 4.3 k/uL (1.3-7.7); Neutrophils % (A) 65 %; Platelet Count 267 k/uL (150-450); RBC 3.96 m/uL (3.80-5.40); RDW 12.4 % (11.5-15.5); WBC 6.7 k/uL (3.8-10.6)
[2022-11-13 15:11] LABS: ALT 15 U/L (4-34); AST 21 U/L (14-36); African American GFR (CKD) 27 (>60 ml/min/1.73 sqM); Alkaline Phosphatase 99 U/L (38-126); Anion Gap 9 mmol/L; Blood Urea Nitrogen 34 mg/dL (7-17); Calcium 9.1 mg/dL (8.4-10.2); Carbon Dioxide 26 mmol/L (22-30); Chloride 104 mmol/L (98-107); Glucose 119 mg/dL (74-99); Magnesium 2.4 mg/dL (1.6-2.3); Non-African American GFR(CKD) 24 (>60 ml/min/1.73 sqM); Potassium 4.5 mmol/L (3.5-5.1); Sodium 139 mmol/L (137-145); Total Bilirubin 0.5 mg/dL (0.2-1.3); Total Protein 6.9 g/dL (6.3-8.2)
[2022-11-13 16:14] LABS: Appearance,Urine Clear (Clear); Bilirubin,Urine Negative (Negative); Blood,Urine Negative (Negative); Color,Urine Light Yellow; Glucose,Urine (UA) Negative (Negative); Ketones,Urine Negative (Negative); Leukocyte Esterase,Urine Moderate (Negative); Nitrite,Urine Negative (Negative); Protein,Urine Negative (Negative); RBC,Urine 1 /hpf (0-5); Specific Gravity,Urine 1.007 (1.001-1.035); Urobilinogen,Urine <2.0 mg/dL (<2.0); WBC,Urine 20 /hpf (0-5)
--- NOTE | 2022-11-13 17:29 | CT ---
EXAMINATION TYPE: CT brain wo con CT DLP: 1211.4 mGycm, Automated exposure control for dose reduction was used. DATE OF EXAM: 11/13/2022 5:18 PM COMPARISON: 03/23/2021. CLINICAL INDICATION:Female, 72 years old with history of dizzy, dizziness TECHNIQUE: Brain: Axial CT images of the brain were obtained with coronal and sagittal reformats created and rev iewed. Contrast used: None. Oral contrast used: None. FINDINGS: Brain: Extra-axial spaces: No abnormal extra-axial fluid collections. Ventricular system: Within normal limits Cerebral parenchyma: No acute intraparenchymal hemorrhage or mass effect. The spencer-white junction is well differentiated. Cerebellum: Unremarkable. Mass effect: No evidence of midline shift. Intracranial vasculature: Atherosclerotic calcifications of the intracranial vessels. Soft tissues: Normal. Calvarium/osseous structures: No depressed skull fracture. Paranasal sinuses and mastoid air cells: Mild scattered paranasal sinus disease. Visualized orbits: Bilateral aphakia IMPRESSION: No acute intracranial process.
[2022-11-13 18:09] VITALS: TEMP 98.2
[2022-11-13] MEDS ORDERED: cefTRIAXone IN SWFI 1,000 MG/10 ML SYRINGE IVP STA (18:35)
[2022-11-13 19:47] VITALS: BP 147/75; PULSE 75
== END 2022-11-13 20:10 | disposition home or self-care (01) ==
LOC: EC 13:45
DX: N39.0 Urinary tract infection, site not specified (principal); E78.5 Hyperlipidemia, unspecified; K21.9 Gastro-esophageal reflux disease without esophagitis; I10 Essential (primary) hypertension; F31.9 Bipolar disorder, unspecified; Z88.2 Allergy status to sulfonamides; Z79.82 Long term (current) use of aspirin; Z79.899 Other long term (current) drug therapy; Z20.822 Contact with and (suspected) exposure to COVID-19
CPT/HCPCS: 36415; 93005; 80053; 83735; 85025; 81001; 87086; 87636; 71046; 70450; 99285; 96374; 96361 ×2; J0696

== ENCOUNTER → 2022-12-28 | Outpatient (CLI) | payer MEDICARE ==
--- NOTE | 2022-12-28 19:45 | CA ---
Transthoracic Echo Report Name: Jayne Finn Age: 72 Gender: F : 1950 Exam Date: 12/28/2022 15:03 Exam Location: [place] Echo Ht (in): 66 Wt (lb): 202 Ordering Physician: Bjorn Velazquez DO Attending/Referring Phys: [employer] Awning Repairer Kate Rene [facility] Procedure CPT: Indications: R60.0 Cardiac Hx: Technical Quality: Technically difficult study Contrast 1: Total Dose (mL): Contrast 2: Total Dose (mL): MEASUREMENTS (Male / Female) Normal Values 2D ECHO LV Diastolic Diameter PLAX 3.7 cm 4.2 - 5.9 / 3.9 - 5.3 cm LV Systolic Diameter PLAX 2.8 cm IVS Diastolic Thickness 1.2 cm 0.6 - 1.0 / 0.6 - 0.9 cm LVPW Diastolic Thickness 0.9 cm 0.6 - 1.0 / 0.6 - 0.9 cm LV Relative Wall Thickness 0.6 LVOT Diameter 1.7 cm Ascending Aorta Diameter 2.9 cm DOPPLER AV Peak Velocity 266.8 cm/s AV Peak Gradient 28.5 mmHg AV Mean Velocity 195.3 cm/s AV Mean Gradient 16.7 mmHg AV Velocity Time Integral 59.5 cm LVOT Peak Velocity 159.3 cm/s LVOT Peak Gradient 10.1 mmHg LVOT Velocity Time Integral 41.7 cm LVOT Stroke Volume 100.3 cm??? LVOT Stroke Volume Index 50.0 ml/m??? LVOT Cardiac Index 3012.6 cm???/min???m??? AV Area Cont Eq vti 1.7 cm??? AV Area Cont Eq pk 1.4 cm??? MV Peak Velocity 148.3 cm/s MV Peak Gradient 8.8 mmHg MV Mean Velocity 89.8 cm/s MV Mean Gradient 3.5 mmHg MV Velocity Time Integral 49.7 cm Mitral E Point Velocity 102.4 cm/s Mitral A Point Velocity 139.1 cm/s Mitral E to A Ratio 0.7 MV Deceleration Time 473.5 ms LV E' Lateral Velocity 6.5 cm/s Mitral E to LV E' Lateral Ratio 15.7 LV E' Septal Velocity 4.2 cm/s Mitral E to LV E' Septal Ratio 24.3 TR Peak Velocity 190.9 cm/s TR Peak Gradient 14.6 mmHg Right Atrial Pressure 3.0 mmHg Pulmonary Artery Systolic Pressu 17.6 mmHg Right Ventricular Systolic Press 17.6 mmHg FINDINGS Left Ventricle Mildly increased septal wall thickness. Small left ventricular cavity. Normal left ventricular systolic function with no obvious regional wall motion abnormalities. Left ventricular ejection fraction is estimated at 60-65%. Right Ventricle Normal right ventricular size. Right Atrium Normal right atrial size. Left Atrium Normal left atrial size. Mitral Valve Mitral valve thickened. Moderate thickening/calcification of the anterior mitral valve leaflet. Mild mitral annular calcification. No mitral regurgitation. Aortic Valve Trileaflet aortic valve. Moderate thickening of the aortic valve cusps with reduced excursion. [id number] aortic stenosis with a peak gradient of 28.46 mmHg and a mean gradient of 16.72 Mild aortic regurgitation. Tricuspid Valve Structurally normal tricuspid valve. Trace tricuspid regurgitation. Pulmonic Valve Pulmonic valve not well visualized. Mild pulmonic regurgitation. Pericardium No pericardial effusion. Echo free space anterior to the right ventricle likely represents a fat pad. Aorta Aortic root and proximal ascending aorta not well visualized. CONCLUSIONS LVH with preserved systolic function Skin mitral leaflets, mitral annular calcification Thickened aortic valve leaflets with mild stenosis Previewed by: Dr. Lisandro Francisco MD (Electronically Signed) Final Date: 28 December 2022 19:44
== END | disposition home or self-care (01) ==
LOC: RADECHMAIN 14:35
PROVIDERS: ATTEND Family Medicine
DX: I08.0 Rheumatic disorders of both mitral and aortic valves (principal); R60.0 Localized edema
CPT/HCPCS: 93306

== ENCOUNTER → 2023-03-09 | Outpatient (CLI) | payer MEDICARE ==
--- NOTE | 2023-03-25 10:37 | EM ---
EVENT MONITOR This is a 14-day event monitor. FINDINGS: There were some rhythm strips that were triggered by the patient, 1 was when she was lightheaded and almost fell. This was on 03/13 at 11:13 a.m. At that time, the patient was in a sinus rhythm at a rate of about 68 beats per minute. Almost all rhythm strips are sinus with first-degree AV block. On another occasion when she felt lightheaded, she was also in a sinus rhythm with a baseline artifact. There is evidence of first-degree heart block, sinus mechanism, no evidence of any clear-cut atrial fibrillation, but there is a lot of baseline artifact. There is a short 3- to 4- beat run of what seems to be a PAT. FINAL IMPRESSION: Unremarkable 14-day event monitor with no correlation of any arrhythmia when patient felt lightheaded. Predominant rhythm is sinus with first-degree AV block, 1 or 2 short runs of PAD. No clear-cut evidence of atrial fibrillation or any other bradyarrhythmia. MMODL / IJN: [id number] /
== END | disposition home or self-care (01) ==
LOC: RADECHMAIN 07:18
PROVIDERS: ATTEND Psychiatry & Neurology Neurology
DX: I44.0 Atrioventricular block, first degree (principal); I49.9 Cardiac arrhythmia, unspecified
CPT/HCPCS: 93270

== ENCOUNTER 2023-03-16 12:37 | Observation (INO) | payer MEDICARE ==
--- NOTE | 2023-03-16 12:59 | ED ---
General Adult HPI - General Chief complaint: Syncope Stated complaint: Syncope Time Seen by Provider: 03/16/23 12:45 Source: patient, EMS, RN notes reviewed Mode of arrival: EMS Limitations: no limitations - History of Present Illness Initial comments: Patient is a pleasant 72-year-old female presenting to the emergency department following a syncopal episode. Patient has been having episodes of lightheadedness for a long time. Patient had a witnessed syncopal episode today. Patient did fall without injury. No headache. Patient only feels sligh tly lightheaded at this time. No chest pain or dyspnea. No abdominal or back pain. No confusion or weakness. No history of previous syncopal episode. Patient had a second syncopal episode witnessed by EMS. - Related Data Home Medications Medication Instructions Recorded Confirmed ARIPiprazole 15 mg PO DAILY 07/15/20 02/25/22 DULoxetine HCL [Cymbalta] 60 mg PO DAILY 07/15/20 02/25/22 Simvastatin [Zocor] 80 mg PO DAILY 07/15/20 02/25/22 lamoTRIgine 200 mg PO BID 07/15/20 02/25/22 Aspirin [Adult Low Dose Aspirin EC] 81 mg PO DAILY 02/24/22 02/25/22 Latanoprost/Pf [Latanoprost 0.005% 1 drop BOTH EYES DAILY 02/24/22 02/25/22 Eye Drop] Metoprolol Tartrate 12.5 mg PO BID 02/24/22 02/25/22 Omeprazole 20 mg PO BID 02/24/22 02/25/22 Timolol 0.25% Ophth Soln [Timoptic 1 drop BOTH EYES DAILY 02/24/22 02/25/22 0.25% Ophth Soln] Previous Rx's Medication Instructions Recorded Cephalexin [Keflex] 500 mg PO Q12HR 7 Days #14 cap 11/13/22 Allergies Allergy/AdvReac Type Severity Reaction Status Date / Time Sulfa (Sulfonamide Allergy Confusion Verified 03/16/23 12:49 Antibiotics) Review of Systems ROS Statement: Those systems with pertinent positive or pertinent negative responses have been documented in the HPI. ROS Other: All systems not noted in ROS Statement are negative. Constitutional: Denies: fever Eyes: Denies: eye pain ENT: Denies: ear pain Respiratory: Denies: cough Cardiovascular: Denies: chest pain Endocrine: Denies: fatigue Gastrointestinal: Denies: abdominal pain Genitourinary: Denies: dysuria Musculoskeletal: Denies: back pain Skin: Denies: rash Neurological: Denies: weakness Past Medical History Past Medical History: GERD/Reflux, Hyperlipidemia, Hypertension Additional Past Medical History / Comment(s): Hx kidney stones. History of Any Multi-Drug Resistant Organisms: None Reported Past Surgical History: Cholecystectomy Additional Past Surgical History / Comment(s): 2 stents for kidney stones, later removed. Past Anesthesia/Blood Transfusion Reactions: No Reported Reaction Past Psychological History: Bipolar, Depression Smoking Status: Never smoker Past Alcohol Use History: None Reported Past Drug Use History: None Reported - Past Family History Mother Family Medical History: Cancer Additional Family Medical History / Comment(s): Skin cancer. Father Family Medical History: Cancer Additional Family Medical History / Comment(s): Skin cancer. General Exam Limitations: no limitations General appearance: alert Head exam: Present: atraumatic, normocephalic Eye exam: Present: normal appearance, PERRL, EOMI ENT exam: Present: normal oropharynx Neck exam: Present: normal inspection Respiratory exam: Present: normal lung sounds bilaterally Cardiovascular Exam: Present: regular rate, normal rhythm Expanded Peripheral pulses: 2+: Radial (R), Radial (L), Dorsalis Pedis (R), Dorsalis Pedis (L) GI/Abdominal exam: Present: soft. Absent: distended, tenderness, pulsatile mass Extremities exam: Present: normal inspection, full ROM. Absent: tenderness Neurological exam: Present: alert, oriented X3, CN II-XII intact. Absent: motor sensory deficit Expanded Neurological exam: Present: protecting the airway Patient oriented to: Present: person, place, time Speech: Present: fluid speech Cranial nerves: EOM's Intact: Normal, Facial Sensation: Normal Sensory exam: Upper Extremity Light Touch: Normal, Lower Extremity Light Touch: Normal Motor strength exam: RUE: 5, LUE: 5, RLE: 5, LLE: 5 Eye Response: (4) open spontaneously Motor Response: (6) obeys commands Verbal Response: (5) oriented Psychiatric exam: Present: normal affect, normal mood Skin exam: Present: normal color Course Vital Signs 03/16/23 03/16/23 03/16/23 12:43 13:26 14:00 Temperature 97.8 F Pulse Rate 58 L 55 L Pulse Rate [ 57 L Sitting] Pulse Rate [ 55 L Supine] Respiratory 18 Rate Blood Pressure 105/52 83/53 Blood Pressure 53/35 [Sitting] Blood Pressure 86/48 [Supine] O2 Sat by Pulse 96 99 Oximetry 03/16/23 14:22 Temperature Pulse Rate 53 L Pulse Rate [ Sitting] Pulse Rate [ Supine] Respiratory 16 Rate Blood Pressure 90/47 Blood Pressure [Sitting] Blood Pressure [Supine] O2 Sat by Pulse 99 Oximetry EKG Findings - EKG Results: EKG: interpreted by ERMD (Borderline ST changes in lead III. T-wave inversion in aVL.), sinus rhythm, normal axis, normal QRS EKG shows: bradycardia Medical Decision Making - Medical Decision Making Was pt. sent in by a medical professional or institution (, MATHEW, CLUB ROOM ATTENDANT, urgent care, hospital, or fci...) When possible be specific @ -No Did you speak to anyone other than the patient for history (EMS, parent, family, police, friend...)? What history was obtained from this source @ -EMS helps provide history including history of second syncopal episode that they did witness Did you review nursing and triage notes (agree or disagree)? Why? @ -I reviewed and agree with nursing and triage notes Were old charts reviewed (outside hosp., previous admission, EMS record, old EKG, old radiological studies, urgent care reports/EKG's, fci records)? Report findings @ -Previous EKG reviewed Differential Diagnosis (chest pain, altered mental status, abdominal pain women, abdominal pain men, vaginal bleeding, weakness, fever, dyspnea, syncope, headache, dizziness, GI bleed, back pain, seizure, CVA, palpatations, mental health, musculoskeletal)? @ -Differential Syncope: Valvular disease, hypertrophic cardiomyopathy, pulmonary embolism, tamponade, tachycardia, bradycardia, AL, hypovolemia, hemorrhage, dissection, anemia, intracranial hemorrhage, seizure, hypoglycemia, carbon monoxide poisoning, this is not meant to be an all-inclusive list. EKG interpreted by me (3pts min.). @ -As above X-rays interpreted by me (1pt min.). @ -None done CT interpreted by me (1pt min.). @ -CT brain without obvious acute intercranial abnormality U/S interpreted by me (1pt. min.). @ -None done What testing was considered but not performed or refused? (CT, X-rays, U/S, labs)? Why? @ -None What meds were considered but not given or refused? Why? @ -None Did you discuss the management of the patient with other professionals (pr ofessionals i.e. , PA, CLUB ROOM ATTENDANT, lab, RT, psych nurse, healthcare social worker, manager corporate responsibility, teacher, collection officer, test case developer)? Give summary @ -Case was discussed with Dr. Ibanez, who will admit covering Dr. Wolfe Was smoking cessation discussed for >3mins.? @ -No Was critical care preformed (if so, how long)? @ -No Were there social determinants of health that impacted care today? How? (Homeles sness, low income, unemployed, alcoholism, drug addiction, transportation, low edu. Level, literacy, decrease access to med. care, retirement, rehab)? @ -No Was there de-escalation of care discussed even if they declined (Discuss DNR or withdrawal of care, Hospice)? DNR status @ -No What co-morbidities impacted this encounter? (DM, HTN, Smoking, COPD, CAD, Cancer, CVA, ARF, Chemo, Hep., AIDS, mental health diagnosis, sleep apnea, morbid obesity)? @ -None Was patient admitted / discharged? Hospital course, mention meds given and route, prescriptions, significant lab abnormalities, going to OR and other pertinent info. @ -Patient reevaluated. Orthostatics positive. Blood pressure improved. Patient will be admitted with cardiac consult. We are still attempting to interrogate the patient's event monitor. Admission orders written. Undiagnosed new problem with uncertain prognosis? @ -No Drug Therapy requiring intensive monitoring for toxicity (Heparin, Nitro, Insulin, Cardizem)? @ -No Were any procedures done? @ -No Diagnosis/symptom? @ -Syncope, orthostatic hypotension Acute, or Chronic, or Acute on Chronic? @ -Acute Uncomplicated (without systemic symptoms) or Complicated (systemic symptoms)? @ -default Side effects of treatment? @ -No Exacerbation, Progression, or Severe Exacerbation? @ -No Poses a threat to life or bodily function? How? (Chest pain, USA, AL, pneumonia, PE, COPD, DKA, ARF, appy, cholecystitis, CVA, Diverticulitis, Homicidal, Suicidal, threat to staff... and all critical care pts) @ -No - Lab Data Result diagrams: 03/16/23 12:52 03/16/23 12:52 Lab Results 03/16/23 03/16/23 03/16/23 Range/Units 12:52 12:52 12:52 WBC 16.0 H (3.8-10.6) k/uL RBC 3.51 L (3.80-5.40) m/uL Hgb 11.2 L (11.4-16.0) gm/dL Hct 34.3 (34.0-46.0) % MCV 97.6 (80.0-100.0) fL MCH 31.9 (25.0-35.0) pg MCHC 32.6 (31.0-37.0) g/dL RDW 12.8 (11.5-15.5) % Plt Count 286 (150-450) k/uL MPV 7.6 Neutrophils % 84 % Lymphocytes % 8 % Monocytes % 5 % Eosinophils % 2 % Basophils % 1 % Neutrophils # 13.4 H (1.3-7.7) k/uL Lymphocytes # 1.2 (1.0-4.8) k/uL Monocytes # 0.8 (0-1.0) k/uL Eosinophils # 0.3 (0-0.7) k/uL Basophils # 0.1 (0-0.2) k/uL PT 10.0 (10.0-12.5) sec INR 0.9 (<1.2) APTT 20.8 L (22.0-30.0) sec D-Dimer 0.60 H (<0.60) mg/L FEU Sodium 138 (137-145) mmol/L Potassium 4.9 (3.5-5.1) mmol/L Chloride 107 (98-107) mmol/L Carbon Dioxide 23 (22-30) mmol/L Anion Gap 8 mmol/L BUN 29 H (7-17) mg/dL Creatinine 2.01 H (0.52-1.04) mg/dL Est GFR (CKD-EPI)AfAm 28 (>60 ml/min/1.73 sqM) Est GFR (CKD-EPI)NonAf 24 (>60 ml/min/1.73 sqM) Glucose 206 H (74-99) mg/dL Calcium 8.6 (8.4-10.2) mg/dL Magnesium 2.1 (1.6-2.3) mg/dL Total Bilirubin 0.4 (0.2-1.3) mg/dL AST 19 (14-36) U/L ALT 14 (4-34) U/L Alkaline Phosphatase 96 (38-126) U/L Troponin I (0.000-0.034) ng/mL Total Protein 5.7 L (6.3-8.2) g/dL Albumin 3.3 L (3.5-5.0) g/dL 03/16/23 Range/Units 12:52 WBC (3.8-10.6) k/uL RBC (3.80-5.40) m/uL Hgb (11.4-16.0) gm/dL Hct (34.0-46.0) % MCV (80.0-100.0) fL MCH (25.0-35.0) pg MCHC (31.0-37.0) g/dL RDW (11.5-15.5) % Plt Count (150-450) k/uL MPV Neutrophils % % Lymphocytes % % Monocytes % % Eosinophils % % Basophils % % Neutrophils # (1.3-7.7) k/uL Lymphocytes # (1.0-4.8) k/uL Monocytes # (0-1.0) k/uL Eosinophils # (0-0.7) k/uL Basophils # (0-0.2) k/uL PT (10.0-12.5) sec INR (<1.2) APTT (22.0-30.0) sec D-Dimer (<0.60) mg/L FEU Sodium (137-145) mmol/L Potassium (3.5-5.1) mmol/L Chloride (98-107) mmol/L Carbon Dioxide (22-30) mmol/L Anion Gap mmol/L BUN (7-17) mg/dL Creatinine (0.52-1.04) mg/dL Est GFR (CKD-EPI)AfAm (>60 ml/min/1.73 sqM) Est GFR (CKD-EPI)NonAf (>60 ml/min/1.73 sqM) Glucose (74-99) mg/dL Calcium (8.4-10.2) mg/dL Magnesium (1.6-2.3) mg/dL Total Bilirubin (0.2-1.3) mg/dL AST (14-36) U/L ALT (4-34) U/L Alkaline Phosphatase (38-126) U/L Troponin I <0.012 (0.000-0.034) ng/mL Total Protein (6.3-8.2) g/dL Albumin (3.5-5.0) g/dL Disposition Clinical Impression: Syncope, Orthostatic hypotension Disposition: HOME SELF-CARE Condition: Stable Is patient prescribed a controlled substance at d/c from ED?: No Referrals: Bjorn Velazquez DO [Primary Care Provider] - 1-2 days Time of Disposition: 15:00
[2023-03-16] MEDS ORDERED: SODIUM CHLORIDE 0.9% 1,000 ML IV STA (13:22)
[2023-03-16 13:44] LABS: Basophils # (A) 0.1 k/uL (0-0.2); Basophils % (A) 1 %; Eosinophils # (A) 0.3 k/uL (0-0.7); Eosinophils % (A) 2 %; HCT 34.3 % (34.0-46.0); HGB 11.2 gm/dL (11.4-16.0); Lymphocytes # (A) 1.2 k/uL (1.0-4.8); Lymphocytes % (A) 8 %; MCH 31.9 pg (25.0-35.0); MCHC 32.6 g/dL (31.0-37.0); MCV 97.6 fL (80.0-100.0); Mean Platelet Volume 7.6; Monocytes # (A) 0.8 k/uL (0-1.0); Monocytes % (A) 5 %; Neutrophils # (A) 13.4 k/uL (1.3-7.7); Neutrophils % (A) 84 %; Platelet Count 286 k/uL (150-450); RBC 3.51 m/uL (3.80-5.40); RDW 12.8 % (11.5-15.5)
[2023-03-16 13:56] LABS: ALT 14 U/L (4-34); AST 19 U/L (14-36); African American GFR (CKD) 28 (>60 ml/min/1.73 sqM); Albumin 3.3 g/dL (3.5-5.0); Alkaline Phosphatase 96 U/L (38-126); Anion Gap 8 mmol/L; Blood Urea Nitrogen 29 mg/dL (7-17); Calcium 8.6 mg/dL (8.4-10.2); Carbon Dioxide 23 mmol/L (22-30); Chloride 107 mmol/L (98-107); Glucose 206 mg/dL (74-99); Magnesium 2.1 mg/dL (1.6-2.3); Non-African American GFR(CKD) 24 (>60 ml/min/1.73 sqM); Potassium 4.9 mmol/L (3.5-5.1); Sodium 138 mmol/L (137-145); Total Bilirubin 0.4 mg/dL (0.2-1.3); Total Protein 5.7 g/dL (6.3-8.2)
[2023-03-16 14:09] LABS: INR 0.9 (<1.2); Partial Thromboplastin Time 20.8 sec (22.0-30.0)
--- NOTE | 2023-03-16 14:10 | CT ---
EXAMINATION TYPE: CT brain wo con DATE OF EXAM: 03/16/2023 COMPARISON: 11/13/2022 HISTORY: Multiple syncopal episodes. CT DLP: 1153.4 mGycm Automated exposure control for dose reduction was used. FINDINGS: The ventricles, basal cisterns and sulci over the convexities are within normal limits for the patien t's age. There is no mass effect or shift of midline structures No abnormal density is seen throughout the brain parenchyma and there is no acute intra or extra-axia l hemorrhage The posterior fossa including the brainstem, fourth ventricle and cerebellar pontine angles are gross ly normal. The intraorbital contents appear normal and symmetric. Visualized paranasal sinuses and mastoid air cells are well aerated. The calvarium is intact. IMPRESSION: No acute bleed or mass effect and no interval change.
[2023-03-16] MEDS ORDERED: ACETAMINOPHEN TAB 325 MG TAB PO PRN (15:00)
[2023-03-16] MEDS ORDERED: NALOXONE 0.4 MG/ML 1 ML VIAL IV PRN (15:00)
--- NOTE | 2023-03-16 15:17 | XR ---
EXAMINATION TYPE: XR chest 2V DATE OF EXAM: 03/16/2023 COMPARISON: 11/13/2022 HISTORY: 72-year-old female with syncope TECHNIQUE: AP and lateral views FINDINGS: Electronic device projects over the left chest. Very low lung volumes with crowded vascular markings and obscuration of the lower lungs and partial obscuration of the heart margins. Heart appears border line in size. Mild interstitial prominence may reflect the low lung volumes. No consolidation or pleu ral effusion. IMPRESSION: Very limited exam given marked hypoventilatory changes. Interstitial prominence could reflect bronchi tis/asthma or crowded vascular markings.
[2023-03-16] MEDS: SODIUM CHLORIDE 0.9% 1,000 ML IV SCH (15:28)
--- NOTE | 2023-03-16 16:38 | ED ---
Medical Decision Making - Lab Data Result diagrams: 03/16/23 12:52 03/16/23 12:52 Lab Results 03/16/23 03/16/23 03/16/23 Range/Units 12:52 12:52 12:52 WBC 16.0 H (3.8-10.6) k/uL RBC 3.51 L (3.80-5.40) m/uL Hgb 11.2 L (11.4-16.0) gm/dL Hct 34.3 (34.0-46.0) % MCV 97.6 (80.0-100.0) fL MCH 31.9 (25.0-35.0) pg MCHC 32.6 (31.0-37.0) g/dL RDW 12.8 (11.5-15.5) % Plt Count 286 (150-450) k/uL MPV 7.6 Neutrophils % 84 % Lymphocytes % 8 % Monocytes % 5 % Eosinophils % 2 % Basophils % 1 % Neutrophils # 13.4 H (1.3-7.7) k/uL Lymphocytes # 1.2 (1.0-4.8) k/uL Monocytes # 0.8 (0-1.0) k/uL Eosinophils # 0.3 (0-0.7) k/uL Basophils # 0.1 (0-0.2) k/uL PT 10.0 (10.0-12.5) sec INR 0.9 (<1.2) APTT 20.8 L (22.0-30.0) sec D-Dimer 0.60 H (<0.60) mg/L FEU Sodium 138 (137-145) mmol/L Potassium 4.9 (3.5-5.1) mmol/L Chloride 107 (98-107) mmol/L Carbon Dioxide 23 (22-30) mmol/L Anion Gap 8 mmol/L BUN 29 H (7-17) mg/dL Creatinine 2.01 H (0.52-1.04) mg/dL Est GFR (CKD-EPI)AfAm 28 (>60 ml/min/1.73 sqM) Est GFR (CKD-EPI)NonAf 24 (>60 ml/min/1.73 sqM) Glucose 206 H (74-99) mg/dL Calcium 8.6 (8.4-10.2) mg/dL Magnesium 2.1 (1.6-2.3) mg/dL Total Bilirubin 0.4 (0.2-1.3) mg/dL AST 19 (14-36) U/L ALT 14 (4-34) U/L Alkaline Phosphatase 96 (38-126) U/L Troponin I (0.000-0.034) ng/mL Total Protein 5.7 L (6.3-8.2) g/dL Albumin 3.3 L (3.5-5.0) g/dL 03/16/23 Range/Units 12:52 WBC (3.8-10.6) k/uL RBC (3.80-5.40) m/uL Hgb (11.4-16.0) gm/dL Hct (34.0-46.0) % MCV (80.0-100.0) fL MCH (25.0-35.0) pg MCHC (31.0-37.0) g/dL RDW (11.5-15.5) % Plt Count (150-450) k/uL MPV Neutrophils % % Lymphocytes % % Monocytes % % Eosinophils % % Basophils % % Neutrophils # (1.3-7.7) k/uL Lymphocytes # (1.0-4.8) k/uL Monocytes # (0-1.0) k/uL Eosinophils # (0-0.7) k/uL Basophils # (0-0.2) k/uL PT (10.0-12.5) sec INR (<1.2) APTT (22.0-30.0) sec D-Dimer (<0.60) mg/L FEU Sodium (137-145) mmol/L Potassium (3.5-5.1) mmol/L Chloride (98-107) mmol/L Carbon Dioxide (22-30) mmol/L Anion Gap mmol/L BUN (7-17) mg/dL Creatinine (0.52-1.04) mg/dL Est GFR (CKD-EPI)AfAm (>60 ml/min/1.73 sqM) Est GFR (CKD-EPI)NonAf (>60 ml/min/1.73 sqM) Glucose (74-99) mg/dL Calcium (8.4-10.2) mg/dL Magnesium (1.6-2.3) mg/dL Total Bilirubin (0.2-1.3) mg/dL AST (14-36) U/L ALT (4-34) U/L Alkaline Phosphatase (38-126) U/L Troponin I <0.012 (0.000-0.034) ng/mL Total Protein (6.3-8.2) g/dL Albumin (3.5-5.0) g/dL Disposition Clinical Impression: Syncope, Orthostatic hypotension Disposition: ADMITTED IP TO THIS [facility] Condition: Stable Is patient prescribed a controlled substance at d/c from ED?: No Referrals: Bjorn Velazquez DO [Primary Care Provider] - 1-2 days
[2023-03-16] MEDS ORDERED: ONDANSETRON 4 MG TAB PO PRN (19:22)
[2023-03-16] MEDS ORDERED: ENOXAPARIN 40 MG/0.4 ML SYRINGE SQ SCH (19:30)
[2023-03-16] MEDS: FAMOTIDINE 20 MG TAB PO SCH (21:00)
[2023-03-16] MEDS: BRIMONIDINE TARTRATE 0.2% DROPS 5 ML BTL BOTH EYES SCH (21:00)
[2023-03-16] MEDS: ARIPiprazole 15 MG TAB PO SCH (21:00)
[2023-03-16] MEDS: lamoTRIgine 100 MG TAB PO SCH (21:00)
[2023-03-16] MEDS: LATANOPROST 0.005% OPHTH DROPS 2.5 ML BTL BOTH EYES SCH (21:00)
[2023-03-16] MEDS: TIMOLOL 0.5% OPHTH DROPS 5 ML BTL BOTH EYES SCH (21:00)
[2023-03-17] MEDS: SODIUM CHLORIDE 0.9% 1,000 ML IV SCH ×2 (05:49→20:28)
[2023-03-17] MEDS ORDERED: ENOXAPARIN 30 MG/0.3 ML SYRINGE SQ SCH (09:00)
[2023-03-17] MEDS ORDERED: ERGOCALCIFEROL 1,250 MCG (50,000 IU) CAPSULE PO SCH (09:00)
[2023-03-17] MEDS: BRIMONIDINE TARTRATE 0.2% DROPS 5 ML BTL BOTH EYES SCH ×2 (10:06→20:27)
[2023-03-17] MEDS ORDERED: CAFFEINE CITRATE 60 MG/3 ML VIAL IV PRN (10:19)
[2023-03-17] MEDS ORDERED: REGADENOSON 0.4 MG/5 ML SYRINGE IV PRN (10:19)
[2023-03-17] MEDS ORDERED: AMINOPHYLLINE 500 MG/20 ML VIAL IV PRN (10:19)
--- NOTE | 2023-03-17 10:19 | P.CRDCN ---
History of Present Illness History of present illness: HISTORY OF PRESENTING ILLNESS Patient is a pleasant 72-year-old female with history of newly diagnosed orthostatic hypotension, previous hypertension, CKD who presents secondary syncopal episode. She has been worked up for 6 months and especially the last few months for lightheadedness always with standing. This does not occur every time she stands up however about half the time she'll stand up get lightheaded and feel her legs getting weak. She had more significant episode where she stood up and then blacked out. She denies any recent fevers, chills however elevated white blood cell count and initial blood pressure 100/50 and on sitting blood pressure is 55/30. Today blood pressure orthostatics were continued to be significant with systolic dropping from 160 down to 105 on standing. She has been given IV fluids and metoprolol has been held. She has been told she has a murmur since the last 20-30 years. Prior echo from December 2022 showed mild to moderate aortic stenosis, mild aortic regurgitation, left ventricular ejection fraction 60-65% with mention of mildly increased septal wall thickness. On personal review septum appears 1.6 cm with otherwise fairly normal-appearing myocardium possibly more consistent with hypertrophic cardiomyopathy. She has been wearing an event monitor which she was actually wearing during the episode. REVIEW OF SYSTEMS At the time of my exam: CONSTITUTIONAL: Denies fever or chills. CARDIOVASCULAR: Denies chest pain, +shortness of breath, no orthopnea, PND or palpitations. RESPIRATORY: Denies cough. GASTROINTESTINAL: Denies abdominal pain, diarrhea, constipation, nausea or vomiting. MUSCULOSKELETAL: Denies myalgias. NEUROLOGIC: Denies numbness, tingling or weakness. ENDOCRINE: Denies fatigue, weight change, polydipsia or polyurina. GENITOURINARY: Denies burning, hematuria or urgency with micturation. HEMATOLOGIC: Denies history of anemia or bleeding. PHYSICAL EXAMINATION Vital signs reviewed. CONSTITUTIONAL: No apparent distress. HEENT: Head is normocephalic. Pupils are equal, round. Sclerae anicteric. Mucous membranes of the mouth are moist. No JVD. No carotid bruit. CHEST EXAMINATION: Lungs are clear to auscultation. No chest wall tenderness is noted on palpation or with deep breathing. HEART EXAMINATION: Regular rate and rhythm. S1, S2 heard. No murmurs, gallops or rub. ABDOMEN: Soft, nontender. Positive bowel sounds. EXTREMITIES: 2+ peripheral pulses, no lower extremity edema and no calf tenderness. NEUROLOGIC EXAMINATION: Patient is awake, alert and oriented x3. ASSESSMENT 1. Syncope appears mainly related to blood pressure 2. Orthostatic hypotension 3. Aortic stenosis, questionable more component of LVOT gradient/possible hypertrophic cardiomyopathy 4. Increased septal thickness 1.6 cm, rule out hypertrophic cardiopathy 5. Chronic kidney disease PLAN Patient with significant orthostatic vital signs which may be exacerbated by possible infection with increased white blood cell count. Continue with IV fluids. Add Midrin and discontinue metoprolol. May also be of component of hypertrophic cardiomyopathy however gradient did not significantly change with maneuvers. Likely outpatient cardiac MRI to further evaluate. For completeness sake check a Lexiscan stress test tomorrow to evaluate for any inducible ischemia. If patient relatively stable possible discharge home tomorrow. Past Medical History Past Medical History: GERD/Reflux, Hyperlipidemia, Hypertension Additional Past Medical History / Comment(s): Hx kidney stones. History of Any Multi-Drug Resistant Organisms: None Reported Past Surgical History: Cholecystectomy Additional Past Surgical History / Comment(s): 2 stents for kidney stones, later removed. Past Anesthesia/Blood Transfusion Reactions: No Reported Reaction Past Psychological History: Bipolar, Depression Smoking Status: Never smoker Past Alcohol Use History: None Reported Past Drug Use History: None Reported - Past Family History Mother Family Medical History: Cancer Additional Family Medical History / Comment(s): Skin cancer. Father Family Medical History: Cancer Additional Family Medical History / Comment(s): Skin cancer. Medications and Allergies Home Medications Medication Instructions Recorded Confirmed Type ARIPiprazole 15 mg PO HS@199907/15/20 03/16/23 History DULoxetine HCL [Cymbalta] 60 mg PO DAILY@0800 07/15/20 03/16/23 History Simvastatin [Zocor] 80 mg PO HS@199907/15/20 03/16/23 History lamoTRIgine 200 mg PO BID@08,199907/15/20 03/16/23 History Aspirin [Adult Low Dose Aspirin EC] 81 mg PO DAILY@0800 02/24/22 03/16/23 History Latanoprost/Pf [Latanoprost 0.005% 1 drop BOTH EYES HS@199902/24/22 03/16/23 History Eye Drop] Metoprolol Tartrate 12.5 mg PO BID@0800,199902/24/22 03/16/23 History Omeprazole 20 mg PO DAILY@0800 02/24/22 03/16/23 History Brimonidine Tartrate [Alphagan P 1 drops BOTH EYES BID@0800,199903/16/23 03/16/23 History 0.2% Ophth Soln] Ergocalciferol (Vitamin D2) 1,250 mcg PO WE 03/16/23 03/16/23 History [Drisdol (50,000 Iu)] Meclizine [Antivert] 25 mg PO TID PRN 03/16/23 03/16/23 History Ondansetron [Zofran] 4 mg PO Q8HR PRN 03/16/23 03/16/23 History Timolol 0.5% Ophth Soln [Timoptic 1 drop BOTH EYES BID@0800,199903/16/23 03/16/23 History 0.5% Ophth Soln] Allergies Allergy/AdvReac Type Severity Reaction Status Date / Time Sulfa (Sulfonamide Allergy Confusion Verified 03/16/23 16:57 Antibiotics) Physical Exam Vitals: Vital Signs Temp Pulse Pulse Pulse Pulse Resp BP 03/17/23 09:57 03/17/23 09:35 121 H 114 H 101 H 18 03/17/23 08:21 03/17/23 07:00 98.1 F 68 14 03/17/23 02:31 98.1 F 68 18 03/16/23 20:58 98.1 F 64 16 03/16/23 20:08 98.1 F 03/16/23 19:45 74 18 155/65 03/16/23 15:00 52 L 18 110/51 03/16/23 14:22 53 L 16 90/47 03/16/23 14:00 55 L 83/53 03/16/23 13:26 57 L 55 L 03/16/23 12:43 97.8 F 58 L 18 105/52 BP BP BP BP BP BP Pulse Ox 03/17/23 09:57 119/72 123/67 03/17/23 09:35 168/84 105/51 139/69 96 03/17/23 08:21 93 L 03/17/23 07:00 142/58 95 03/17/23 02:31 136/56 97 03/16/23 20:58 124/68 98 03/16/23 20:08 03/16/23 19:45 96 03/16/23 15:00 99 03/16/23 14:22 99 03/16/23 14:00 99 03/16/23 13:26 53/35 86/48 03/16/23 12:43 96 Intake and Output 03/16/23 03/17/23 03/17/23 22:59 06:59 14:59 Output Total 550 Balance -550 Output: Urine 550 Other: Voiding Method External Catheter External Catheter # Voids 0 Weight 90.718 kg Results 03/16/23 12:52 03/16/23 12:52 Cardiac Enzymes 03/16/23 03/16/23 03/16/23 Range/Units 12:52 12:52 17:24 AST 19 (14-36) U/L Troponin I <0.012 <0.012 (0.000-0.034) ng/mL 03/16/23 Range/Units 21:26 AST (14-36) U/L Troponin I <0.012 (0.000-0.034) ng/mL Coagulation 03/16/23 Range/Units 12:52 PT 10.0 (10.0-12.5) sec APTT 20.8 L (22.0-30.0) sec CBC 03/16/23 Range/Units 12:52 WBC 16.0 H (3.8-10.6) k/uL RBC 3.51 L (3.80-5.40) m/uL Hgb 11.2 L (11.4-16.0) gm/dL Hct 34.3 (34.0-46.0) % Plt Count 286 (150-450) k/uL Comprehensive Metabolic Panel 03/16/23 Range/Units 12:52 Sodium 138 (137-145) mmol/L Potassium 4.9 (3.5-5.1) mmol/L Chloride 107 (98-107) mmol/L Carbon Dioxide 23 (22-30) mmol/L BUN 29 H (7-17) mg/dL Creatinine 2.01 H (0.52-1.04) mg/dL Glucose 206 H (74-99) mg/dL Calcium 8.6 (8.4-10.2) mg/dL AST 19 (14-36) U/L ALT 14 (4-34) U/L Alkaline Phosphatase 96 (38-126) U/L Total Protein 5.7 L (6.3-8.2) g/dL Albumin 3.3 L (3.5-5.0) g/dL Current Medications Generic Name Dose Route Start Last Admin Trade Name Freq PRN Reason Stop Dose Admin Acetaminophen 650 mg 03/16/23 15:00 Acetaminophen Tab 325 Mg Tab PO Q6HR PRN Mild Pain or Fever > 100.5 Aripiprazole 15 mg 03/16/23 20:00 03/16/23 21:00 Aripiprazole 15 Mg Tab PO 15 mg HS@1999 DINORAH Administration Aspirin 81 mg 03/17/23 08:00 Aspirin 81 Mg PO DAILY@08 PENDING SALE TO [facility] Brimonidine Tartrate 1 drops 03/16/23 20:00 03/17/23 10:06 Brimonidine Tartrate 0.2% Drops 5 Ml Btl BOTH EYES 1 drops BID@ PENDING SALE TO [facility] Administration Duloxetine HCl 60 mg 03/17/23 08:00 Duloxetine Hcl 60 Mg Capsule.Dr PO DAILY@08 PENDING SALE TO [facility] Enoxaparin Sodium 30 mg 03/17/23 09:00 Enoxaparin 30 Mg/0.3 Ml Syringe SQ DAILY PENDING SALE TO [facility] Ergocalciferol 1,250 mcg 03/17/23 09:00 Ergocalciferol 1,250 Mcg (50,000 Iu) Capsule PO WE PENDING SALE TO [facility] Famotidine 20 mg 03/16/23 21:00 03/16/23 21:00 Famotidine 20 Mg Tab PO 20 mg HS PENDING SALE TO [facility] Administration Sodium Chloride 1,000 mls @ 75 mls/hr 03/16/23 15:00 03/17/23 05:49 Saline 0.9% IV 75 mls/hr .[id number] DINORAH Administration Lamotrigine 200 mg 03/16/23 20:00 03/16/23 21:00 Lamotrigine 100 Mg Tab PO 200 mg BID@ PENDING SALE TO [facility] Administration Latanoprost 1 drops 03/16/23 20:00 03/16/23 21:00 Latanoprost 0.005% Ophth Drops 2.5 Ml Btl BOTH EYES 1 drops HS@1999 DINORAH Administration Naloxone HCl 0.2 mg 03/16/23 15:00 Naloxone 0.4 Mg/Ml 1 Ml Vial IV Q2M PRN Opioid Reversal Ondansetron HCl 4 mg 03/16/23 19:22 Ondansetron 4 Mg Tab PO Q8HR PRN Nausea Pantoprazole Sodium 40 mg 03/17/23 08:00 Pantoprazole 40 Mg Tablet PO DAILY@0800 PENDING SALE TO [facility] Timolol Maleate 1 drops 03/16/23 20:00 03/16/23 21:00 Timolol 0.5% Ophth Drops 5 Ml Btl BOTH EYES 1 drops BID@0800,1999 PENDING SALE TO [facility] Administration Intake and Output 03/16/23 03/17/23 03/17/23 22:59 06:59 14:59 Output Total 550 Balance -550 Output: Urine 550 Other: Voiding Method External Catheter External Catheter # Voids 0 Weight 90.718 kg 03/16/23 12:52 03/16/23 12:52
[2023-03-17] MEDS: PANTOPRAZOLE 40 MG TABLET PO SCH (10:26)
[2023-03-17] MEDS: lamoTRIgine 100 MG TAB PO SCH ×2 (10:26→20:27)
[2023-03-17] MEDS: DULoxetine HCL 60 MG CAPSULE.DR PO SCH (10:26)
[2023-03-17 10:58] LABS: Basophils # (A) 0.06 X 10*3/uL (0.00-0.10); Basophils % (A) 0.8 %; Eosinophils # (A) 0.14 X 10*3/uL (0.04-0.35); Eosinophils % (A) 1.9 %; HCT 28.3 % (37.2-46.3); Lymphocytes # (A) 2.13 X 10*3/uL (0.90-5.00); Lymphocytes % (A) 29.3 %; MCH 31.7 pg (27.0-32.0); MCHC 31.8 g/dL (32.0-37.0); MCV 99.6 FL (80.0-97.0); Mean Platelet Volume 9.9 FL (9.5-12.2); Monocytes # (A) 0.94 X 10*3/uL (0.20-1.00); Monocytes % (A) 12.9 %; NRBC Per 100 WBC 0 X 10*3/uL (0.00-0.01); Neutrophils # (A) 3.97 X 10*3/uL (1.80-7.70); Neutrophils % (A) 54.8 %; Platelet Count 255 X 10*3/uL (140-440); RBC 2.84 X 10*6/uL (4.10-5.20); RDW 12.8 % (11.5-14.5); WBC 7.26 X 10*3/uL (4.50-10.00)
[2023-03-17 11:12] LABS: ALT 7 U/L (8-44); AST 12 U/L (13-35); Albumin 3.3 g/dL (3.8-4.9); Albumin/Globulin Ratio 1.83 Ratio (1.60-3.17); Alkaline Phosphatase 79 U/L (41-126); BUN/Creat Ratio 12.52 Ratio (12.00-20.00); Blood Urea Nitrogen 28.8 mg/dL (9.0-27.0); Calcium 8.6 mg/dL (8.7-10.3); Carbon Dioxide 23.1 mmol/L (21.6-31.8); Chloride 110 mmol/L (96-109); Globulin 1.8 g/dL (1.6-3.3); Glucose 126 mg/dL (70-110); Potassium 4.6 mmol/L (3.5-5.5); Sodium 143 mmol/L (135-145); Total Bilirubin <0.2 mg/dL (0.3-1.2); Total Protein 5.1 g/dL (6.2-8.2)
[2023-03-17] MEDS: MIDODRINE 5 MG TAB PO SCH ×2 (13:45→17:34)
[2023-03-17] MEDS: ASPIRIN 81 MG PO SCH (13:45)
[2023-03-17] MEDS: TIMOLOL 0.5% OPHTH DROPS 5 ML BTL BOTH EYES SCH ×2 (13:45→20:28)
[2023-03-17 14:44] VITALS: RESP 16
--- NOTE | 2023-03-17 17:07 | XR ---
EXAMINATION TYPE: XR Hip Complete RT DATE OF EXAM: 03/17/2023 3:41 PM CLINICAL INDICATION:Female, 72 years old with history of rt hip pain/post fall; [facility] COMPARISON: None. TECHNIQUE: XR Hip Complete RT; hip was examined in the frontal and lateral projections and a AP pelvi s. FINDINGS: No evidence for acute process, joint dislocation or significant soft tissue swelling. Osteo phyte formation of the superior acetabulum of the hip. IMPRESSION: 1. No evidence for acute process. 2. Mild hip osteoarthrosis.
[2023-03-17] MEDS: FAMOTIDINE 20 MG TAB PO SCH (20:27)
[2023-03-17] MEDS: ARIPiprazole 15 MG TAB PO SCH (20:27)
[2023-03-17] MEDS: LATANOPROST 0.005% OPHTH DROPS 2.5 ML BTL BOTH EYES SCH (20:28)
--- NOTE | 2023-03-17 20:35 | P.HPIM ---
History of Present Illness H&P Date: 03/17/23 Chief Complaint: Fall This is a 72-year-old patient, follows with Dr. Bjorn Vasques. Chronic stable medical conditions include GERD, hypertension, hyperlipidemia, kidney stones, bipolar. Patient is at assisted living [facility] and uses a walker. For about 6 months patient getting episodes of getting dizzy lightheaded sometimes nearly passing out after getting up. Very seldom at rest. She's been worked up by neurologist Dr. Todd. Outpatient. Has several testing done. Because of the fall patient developed bruising on the right hip. No chest pain and palpitation otherwise. Review of systems: GEN.: None EYES: None HEENT: None NECK: None RESPIRATORY: None CARDIOVASCULAR: None GASTROINTESTINAL: None GENITOURINARY: None MUSCULOSKELETAL: Joint pains LYMPHATICS: None HEMATOLOGICAL: None PSYCHIATRY: None NEUROLOGICAL: [Focal symptoms-none Social history: No smoking or alcohol. Lives at assisted living [facility]. Does use a walker. Physical examination: VITAL SIGNS: 9 7.8, 57, 105/51-standing and 139/69 supine GENERAL: Average built, propped up in bed, comfortable. EYES: Pupils equal. Conjunctiva normal. HEENT: External appearance of nose and ears normal, oral cavity grossly normal. NECK: JVD not raised; masses not palpable. HEART: First and second heart sounds are normal; no edema. LUNGS: Respiratory rate normal; clear to auscultation. ABDOMEN: Soft, nontender, liver spleen not palpable, no masses palpable. PSYCH: Alert and oriented x3; mood and affect normal. MUSCULOSKELETAL:No Clubbing/cyanosis;muscles-grossly intact. OA NEUROLOGICAL: Cranial nerves grossly intact; no facial asymmetry, power and sensation grossly intact. LYMPHATICS: No lymph nodes palpable in the axilla and neck INVESTIGATIONS, reviewed in the clinical context: White count 7.2 hemoglobin 9 platelets 255 potassium 4.6 BUN 28.8 creatinine 2.3 EKG tracing personally reviewed by me-sinus bradycardia CT brain unremarkable Chest x-ray film personally reviewed by me-poor expiratory film Assessment plan: -Severe orthostatic hypertension. Patient had extensive workup outpatient by Dr. Todd neurologist. We'll request the records. Cardiology consulted here. Started on midodrine. Also ordered GEORGINA stockings thigh-high. -Bipolar disorder Nitesh Doron all. Cymbalta. -Essential hypertension Metoprolol 12.5 twice a day -Chronic gait dysfunction, uses a walker at baseline. Care was discussed with the patient. Cardiogenic consulted. Past Medical History Past Medical History: GERD/Reflux, Hyperlipidemia, Hypertension Additional Past Medical History / Comment(s): Hx kidney stones. History of Any Multi-Drug Resistant Organisms: None Reported Past Surgical History: Cholecystectomy Additional Past Surgical History / Comment(s): 2 stents for kidney stones, later removed. Past Anesthesia/Blood Transfusion Reactions: No Reported Reaction Past Psychological History: Bipolar, Depression Smoking Status: Never smoker Past Alcohol Use History: None Reported Past Drug Use History: None Reported - Past Family History Mother Family Medical History: Cancer Additional Family Medical History / Comment(s): Skin cancer. Father Family Medical History: Cancer Additional Family Medical History / Comment(s): Skin cancer. Medications and Allergies Home Medications Medication Instructions Recorded Confirmed Type ARIPiprazole 15 mg PO HS@199907/15/20 03/16/23 History DULoxetine HCL [Cymbalta] 60 mg PO DAILY@0800 07/15/20 03/16/23 History Simvastatin [Zocor] 80 mg PO HS@199907/15/20 03/16/23 History lamoTRIgine 200 mg PO BID@08,199907/15/20 03/16/23 History Aspirin [Adult Low Dose Aspirin EC] 81 mg PO DAILY@0800 02/24/22 03/16/23 History Latanoprost/Pf [Latanoprost 0.005% 1 drop BOTH EYES HS@199902/24/22 03/16/23 History Eye Drop] Metoprolol Tartrate 12.5 mg PO BID@08,199902/24/22 03/16/23 History Omeprazole 20 mg PO DAILY@0800 02/24/22 03/16/23 History Brimonidine Tartrate [Alphagan P 1 drops BOTH EYES BID@08,199903/16/23 03/16/23 History 0.2% Ophth Soln] Ergocalciferol (Vitamin D2) 1,250 mcg PO WE 03/16/23 03/16/23 History [Drisdol (50,000 Iu)] Meclizine [Antivert] 25 mg PO TID PRN 03/16/23 03/16/23 History Ondansetron [Zofran] 4 mg PO Q8HR PRN 03/16/23 03/16/23 History Timolol 0.5% Ophth Soln [Timoptic 1 drop BOTH EYES BID@0800,199903/16/23 03/16/23 History 0.5% Ophth Soln] Allergies Allergy/AdvReac Type Severity Reaction Status Date / Time Sulfa (Sulfonamide Allergy Confusion Verified 03/16/23 16:57 Antibiotics) Physical Exam Vitals: Vital Signs Temp Pulse Pulse Pulse Pulse Resp BP 03/17/23 09:35 121 H 114 H 101 H 18 03/17/23 08:21 03/17/23 07:00 98.1 F 68 14 03/17/23 02:31 98.1 F 68 18 03/16/23 20:58 98.1 F 64 16 03/16/23 20:08 98.1 F 03/16/23 19:45 74 18 155/65 03/16/23 15:00 52 L 18 110/51 03/16/23 14:22 53 L 16 90/47 03/16/23 14:00 55 L 83/53 03/16/23 13:26 57 L 55 L 03/16/23 12:43 97.8 F 58 L 18 105/52 BP BP BP BP Pulse Ox 03/17/23 09:35 168/84 105/51 139/69 96 03/17/23 08:21 93 L 03/17/23 07:00 142/58 95 03/17/23 02:31 136/56 97 03/16/23 20:58 124/68 98 03/16/23 20:08 03/16/23 19:45 96 03/16/23 15:00 99 03/16/23 14:22 99 03/16/23 14:00 99 03/16/23 13:26 53/35 86/48 03/16/23 12:43 96 Intake and Output 03/16/23 03/17/23 03/17/23 22:59 06:59 14:59 Output Total 550 Balance -550 Output: Urine 550 Other: Voiding Method External Catheter External Catheter # Voids 0 Weight 90.718 kg Results CBC & Chem 7: 03/17/23 06:49 03/17/23 06:49 Labs: Abnormal Lab Results - Last 24 Hours (Table) 03/16/23 03/16/23 03/16/23 Range/Units 12:52 12:52 12:52 WBC 16.0 H (3.8-10.6) k/uL RBC 3.51 L (3.80-5.40) m/uL Hgb 11.2 L (11.4-16.0) gm/dL Neutrophils # 13.4 H (1.3-7.7) k/uL APTT 20.8 L (22.0-30.0) sec D-Dimer 0.60 H (<0.60) mg/L FEU BUN 29 H (7-17) mg/dL Creatinine 2.01 H (0.52-1.04) mg/dL Glucose 206 H (74-99) mg/dL Total Protein 5.7 L (6.3-8.2) g/dL Albumin 3.3 L (3.5-5.0) g/dL
[2023-03-18] MEDS: SODIUM CHLORIDE 0.9% 1,000 ML IV SCH (05:37)
[2023-03-18] MEDS: PANTOPRAZOLE 40 MG TABLET PO SCH (08:26)
[2023-03-18] MEDS: lamoTRIgine 100 MG TAB PO SCH (08:26)
[2023-03-18] MEDS: MIDODRINE 5 MG TAB PO SCH ×2 (08:27→12:23)
[2023-03-18] MEDS: BRIMONIDINE TARTRATE 0.2% DROPS 5 ML BTL BOTH EYES SCH (08:27)
[2023-03-18] MEDS: ASPIRIN 81 MG PO SCH (08:27)
[2023-03-18] MEDS: DULoxetine HCL 60 MG CAPSULE.DR PO SCH (08:27)
--- NOTE | 2023-03-18 09:19 | P.CNOR ---
History of Present Illness - [facility] Consult date: 03/18/23 Consult reason: joint pain (Right hip pain. Status post syncopal episode.) History of present illness: This is a 72-year-old female with recent history of syncopal episodes. She was brought in via EMS after 2 syncopal episodes. The patient fell during one of the episodes, landing on her right side. She has complained of right hip and thigh pain since the fall. She is admitted for further workup regarding her syncope. We are consulted for orthopedic evaluation of her right hip. She denies any groin pain. She states that she has not been up to ambulate since her admission. Past Medical History Past Medical History: GERD/Reflux, Hyperlipidemia, Hypertension Additional Past Medical History / Comment(s): Hx kidney stones. History of Any Multi-Drug Resistant Organisms: None Reported Past Surgical History: Cholecystectomy Additional Past Surgical History / Comment(s): 2 stents for kidney stones, later removed. Past Anesthesia/Blood Transfusion Reactions: No Reported Reaction Past Psychological History: Bipolar, Depression Smoking Status: Never smoker Past Alcohol Use History: None Reported Past Drug Use History: None Reported - Past Family History Mother Family Medical History: Cancer Additional Family Medical History / Comment(s): Skin cancer. Father Family Medical History: Cancer Additional Family Medical History / Comment(s): Skin cancer. Medications and Allergies Home Medications Medication Instructions Recorded Confirmed Type ARIPiprazole 15 mg PO HS@199907/15/20 03/16/23 History DULoxetine HCL [Cymbalta] 60 mg PO DAILY@0800 07/15/20 03/16/23 History Simvastatin [Zocor] 80 mg PO HS@199907/15/20 03/16/23 History lamoTRIgine 200 mg PO BID@08,199907/15/20 03/16/23 History Aspirin [Adult Low Dose Aspirin EC] 81 mg PO DAILY@0800 02/24/22 03/16/23 History Latanoprost/Pf [Latanoprost 0.005% 1 drop BOTH EYES HS@199902/24/22 03/16/23 History Eye Drop] Metoprolol Tartrate 12.5 mg PO BID@0800,199902/24/22 03/16/23 History Omeprazole 20 mg PO DAILY@0800 02/24/22 03/16/23 History Brimonidine Tartrate [Alphagan P 1 drops BOTH EYES BID@0800,199903/16/23 03/16/23 History 0.2% Ophth Soln] Ergocalciferol (Vitamin D2) 1,250 mcg PO WE 03/16/23 03/16/23 History [Drisdol (50,000 Iu)] Meclizine [Antivert] 25 mg PO TID PRN 03/16/23 03/16/23 History Ondansetron [Zofran] 4 mg PO Q8HR PRN 03/16/23 03/16/23 History Timolol 0.5% Ophth Soln [Timoptic 1 drop BOTH EYES BID@0800,199903/16/2302/20 History 0.5% Ophth Soln] Allergies Allergy/AdvReac Type Severity Reaction Status Date / Time Sulfa (Sulfonamide Allergy Confusion Verified 03/16/23 16:57 Antibiotics) Physical Examination This is a pleasant 72-year-old female in no acute distress. She is alert and oriented 3. Exam of the lower extremities reveals ecchymosis and swelling to the posterior lateral right hip. The ecchymosis extends up into her right flank. There is significant tenderness to palpation to the area. There is a hematoma palpable to the posterior lateral aspect of the buttock and hip. She has full hip joint motion without difficulty. She is able to lift her right leg off the bed independently and has good strength against resistance in flexion and extension. There is no hip irritability with internal and external rotation. Full knee motion without difficulty or pain. No knee effusion noted. Neurovascular status to the lower extremity is intact. Results X-rays of the right hip reveal no acute bony abnormality or fracture. Minimal arthritic changes noted. - Labs Labs: Abnormal Lab Results - Last 24 Hours (Table) 03/17/23 03/17/23 Range/Units 06:49 06:49 RBC 2.84 L (4.10-5.20) X 10*6/uL Hgb 9.0 L (12.0-15.0) g/dL Hct 28.3 L (37.2-46.3) % MCV 99.6 H (80.0-97.0) FL MCHC 31.8 L (32.0-37.0) g/dL Chloride 110 H (96-109) mmol/L BUN 28.8 H (9.0-27.0) mg/dL Creatinine 2.3 H (0.6-1.5) mg/dL Est GFR (CKD-EPI) 22 L (>=60) Glucose 126 H (70-110) mg/dL Calcium 8.6 L (8.7-10.3) mg/dL Total Bilirubin <0.2 L (0.3-1.2) mg/dL AST 12 L (13-35) U/L ALT 7 L (8-44) U/L Total Protein 5.1 L (6.2-8.2) g/dL Albumin 3.3 L (3.8-4.9) g/dL H & H 03/16/23 03/17/23 Range/Units 12:52 06:49 Hgb 11.2 L 9.0 L (11.4-16.0) gm/dL Hct 34.3 28.3 L (34.0-46.0) % Coagulation 03/16/23 Range/Units 12:52 INR 0.9 (<1.2) Result Diagrams: 03/17/23 06:49 03/17/23 06:49 Assessment and Plan (1) Hematoma of right buttock Current Visit: Yes Status: Acute Code(s): S30.0XXA - CONTUSION OF LOWER BACK AND PELVIS, INITIAL ENCOUNTER SNOMED Code(s): 28557141528428 (2) Orthostatic hypotension Current Visit: Yes Status: Acute Code(s): I95.1 - ORTHOSTATIC HYPOTENSION SNOMED Code(s): 98997991 (3) Syncope Current Visit: Yes Status: Acute Code(s): R55 - SYNCOPE AND COLLAPSE SNOMED Code(s): 342785718 (4) Contusion of right hip region Current Visit: Yes Status: Acute Code(s): S70.01XA - CONTUSION OF RIGHT HIP, INITIAL ENCOUNTER SNOMED Code(s): 19312668604163774 Plan: The clinical and x-ray findings are discussed with the patient. We discussed that there is no evidence of fracture. She may bear weight as tolerated when she is cleared get out of bed and ambulate. We discussed local treatments such as ice and massage to the area. In 1 week she may begin moist heat and massage to the area. She is to follow-up with our office as needed.
--- NOTE | 2023-03-18 09:26 | NM ---
EXAMINATION TYPE: NM stress lexiscan cardiolite DATE OF EXAM: 03/17/2023 COMPARISON: NONE CLINICAL INDICATION: Female, 72 years old with history of re: syncope; TECHNIQUE: After the intravenous administration of 10.5 mCi Tc 99m Sestamibi - Cardiolite resting SP ECT images acquired 45 minutes post injection. The patient received 0.4mg Lexiscan, 25.7 mCi Tc 99m Sestamibi - Stress images obtained [address] injection FINDINGS: Review of stress and rest SPECT images demonstrates a large fixed defect along the lateral wall. No discrete reversibility is seen. Gated analysis shows normal wall motion with an estimated left ventri cular ejection fraction of 81 %. TID is calculated at 0.77, within normal limits. IMPRESSION: Large fixed defect along the lateral wall not corroborated on polar maps. Findings favored to represe nt attenuation artifact rather than area of old infarct. Clinically correlate. No scintigraphic evidence for reversible ischemia.
[2023-03-18] MEDS: TIMOLOL 0.5% OPHTH DROPS 5 ML BTL BOTH EYES SCH (09:36)
--- NOTE | 2023-03-18 09:56 | CA ---
Lexiscan Nuclear Stress Test Report Name: Jayne Finn Exam Date: 03/17/2023 12:26 Exam Location: [place] Stress Ht (in): 65 Wt (lb): 200 BSA: 1.98 Ordering Phys: Francisco Javier Mcdonald DO Referring Phys: BLANCHE, Technologist: Macario Callahan Age: 72 Gender: F : 1950 Procedure CPT: Indications: Reflex order-Stress test ICD-10 Codes: Patient History: HTN, PRE-DIABETIC, ELEVATED CHOLESTEROL LEVELS, FAMILY HX OF HEART DISEASE Medications: Meds past 24 hrs: Pretest Chest Pain: STRESS TEST Lexiscan Protocol Exercise Duration (min:sec): 01:[address] Depressions (mm): Angina Score: Carty Score: Resting HR (bpm): 72 Peak HR (bpm): 111 Resting BP (mmHg): 117 / 48 Peak BP (mmHg): 124 / 59 MPHR: 148 Target HR: 126 % MPHR: 75 METS: 1.0 Total Dose: Peak Dose: Atropine: Double Product: 41689 BP Response: Stress Termination: INFUSION COMPLETE Stress Symptoms: DIZZINESS,LIGHT HEADED Stress Summary: ECG ANALYSIS Resting ECG: Stress ECG: CONCLUSIONS At baseline EKG showed normal sinus rhythm, normal axis, occasional PACs, no significant ST or T wave abnormalities. Patient recieved IV infusion of Lexiscan 0.4mg and at peak infusion EKG showed minimal 0.[address] depressions in the inferior lateral leads. Conclusions: 1. Normal EKG response to Lexiscan infusion 2. Nuclear imaging to be reported separately. Dr. Francisco Javier Mcdonald DO (Electronically Signed) Final Date: 18 March 2023 09:55
--- NOTE | 2023-03-18 14:18 | P.PN ---
Subjective HISTORY OF PRESENTING ILLNESS Patient is a pleasant 72-year-old female with history of newly diagnosed orthostatic hypotension, previous hypertension, CKD who presents secondary syncopal episode. She has been worked up for 6 months and especially the last few months for lightheadedness always with standing. This does not occur every time she stands up however about half the time she'll stand up get lightheaded and feel her legs getting weak. She had more significant episode where she stood up and then blacked out. She denies any recent fevers, chills however elevated white blood cell count and initial blood pressure 100/50 and on sitting blood pressure is 55/30. Today blood pressure orthostatics were continued to be significant with systolic dropping from 160 down to 105 on standing. She has been given IV fluids and metoprolol has been held. She has been told she has a murmur since the last 20-30 years. Prior echo from December 2022 showed mild to moderate aortic stenosis, mild aortic regurgitation, left ventricular ejection fraction 60-65% with mention of mildly increased septal wall thickness. On personal review septum appears 1.6 cm with otherwise fairly normal-appearing myocardium possibly more consistent with hypertrophic cardiomyopathy. She has been wearing an event monitor which she was actually wearing during the episode. 03/18 patient seen and examined. patient was started on Midrin and metoprolol was dis continued with improvement and orthostatics, negative today. She still admits to some wobbly sensation when she stands up which may be more related to neuropathy. Stress test showed no inducible ischemia. PHYSICAL EXAMINATION Vital signs reviewed. CONSTITUTIONAL: No apparent distress. HEENT: Head is normocephalic. Pupils are equal, round. Sclerae anicteric. Mucous membranes of the mouth are moist. No JVD. No carotid bruit. CHEST EXAMINATION: Lungs are clear to auscultation. No chest wall tenderness is noted on palpation or with deep breathing. HEART EXAMINATION: Regular rate and rhythm. S1, S2 heard. No murmurs, gallops or rub. ABDOMEN: Soft, nontender. Positive bowel sounds. EXTREMITIES: 2+ peripheral pulses, no lower extremity edema and no calf tenderness. NEUROLOGIC EXAMINATION: Patient is awake, alert and oriented x3. ASSESSMENT 1. Syncope appears mainly related to blood pressure 2. Orthostatic hypotension 3. Aortic stenosis, questionable more component of LVOT gradient/possible hypertrophic cardiomyopathy 4. Increased septal thickness 1.6 cm, rule out hypertrophic cardiopathy 5. Chronic kidney disease 6. Residual lightheadedness / disequilibrium. May be related to possible neuropathy or debility PLAN continue Midrin for orthostatic hypotension Echocardiogram likely consistent with hypertrophic cardiomyopathy with murmur since her 30s. Possibly reinitiate when Toprol if symptomatic from her hypertrophic cardiomyopathy however residual off-balance/disequilibrium may be more neurologic. Lexiscan stress test showing no inducible ischemia. Patient appears stable for discharge home from a cardiology standpoint. Objective - Vital Signs Vital signs: Vital Signs Temp 97.7 F 03/18/23 07:05 Pulse 71 03/18/23 13:13 Resp 16 03/18/23 13:13 BP 119/62 03/18/23 10:43 Pulse Ox 93 L 03/18/23 08:22 FiO2 Intake & Output 03/17/23 03/18/23 03/18/23 18:59 06:59 18:59 Intake Total 240 590 Output Total 300 1150 800 Balance -60 -1150 -210 Intake: Oral 240 590 Output: Urine 300 1150 800 Other: Voiding Method External Catheter External Catheter External Catheter - Labs CBC & Chem 7: 03/17/23 06:49 03/17/23 06:49
[2023-03-18 15:03] VITALS: BP 165/80; PULSE 67; TEMP 98.1
--- NOTE | 2023-03-18 19:05 | P.PN ---
Progress Note - Text Progress Note Date: 03/18/23 Chief Complaint: Fall This is a 72-year-old patient, follows with Dr. Bjorn Vasques. Chronic stable medical conditions include GERD, hypertension, hyperlipidemia, kidney stones, bipolar. Patient is at assisted living [place] and uses a walker. For about 6 months patient getting episodes of getting dizzy lightheaded sometimes nearly passing out after getting up. Very seldom at rest. She's been worked up by neurologist Dr. Todd. Outpatient. Has several testing done. Because of the fall patient developed bruising on the right hip. No chest pain and palpitation otherwise. 03/18/2023: Lexiscan stress test showed a fixed defect. Right hip did not show any fracture. Patient has GEORGINA stockings. Outpatient tilt table test is been ordered. Further workup with cardiology. Patient already follows with neurologist Dr. Todd was done significant testing. Discussed length with the patient. Including doing things slowly. Questions answered. Patient's friend at the bedside. Midodrine was added by cartilage E and Lopressor was discontinued. Discussion and discharge planning more than 35 minutes Social history: No smoking or alcohol. Lives at assisted [facility]. Does use a walker. Physical examination: VITAL SIGNS: 98.1, 67, 16, 165/80, 96% room air GENERAL: A chair, comfortable. EYES: Pupils equal. Conjunctiva normal. HEENT: External appearance of nose and ears normal, oral cavity grossly normal. NECK: JVD not raised; masses not palpable. HEART: First and second heart sounds are normal; no edema. LUNGS: Respiratory rate normal; clear to auscultation. ABDOMEN: Soft, nontender, liver spleen not palpable, no masses palpable. PSYCH: Alert and oriented x3; mood and affect normal. MUSCULOSKELETAL:No Clubbing/cyanosis;muscles-grossly intact. OA INVESTIGATIONS, reviewed in the clinical context: Lexiscan stress test: Large fixed defect along the lateral wall. Likely represent attenuation artifact. Right hip x-ray: No fracture 03/17/2023: White count 7.2 hemoglobin 9 platelets 255 potassium 4.6 BUN 28.8 creatinine 2.3 White count 7.2 hemoglobin 9 platelets 255 potassium 4.6 BUN 28.8 creatinine 2.3 EKG tracing personally reviewed by me-sinus bradycardia CT brain unremarkable Chest x-ray film personally reviewed by me-poor expiratory film Assessment plan: -Severe orthostatic hypertension. Patient had extensive workup outpatient by Dr. Todd neurologist. By Dr. Mcdonald from cardiology. Started on midodrine. GEORGINA stockings thigh- high. Lopressor discontinued. Patient to follow-up with Dr. Todd. And Dr. Mcdonald Outpatient tilt table test requested -Bipolar disorder -Chronic kidney disease stage III likely nephrosclerosis Follows with Dr. Bhatt -Anemia of chronic kidney disease -Essential hypertension Metoprolol currently held -Chronic gait dysfunction, uses a walker at baseline. Disposition: Assisted-living, [place] Past Medical History Past Medical History: GERD/Reflux, Hyperlipidemia, Hypertension Additional Past Medical History / Comment(s): Hx kidney stones. History of Any Multi-Drug Resistant Organisms: None Reported Past Surgical History: Cholecystectomy Additional Past Surgical History / Comment(s): 2 stents for kidney stones, later removed. Past Anesthesia/Blood Transfusion Reactions: No Reported Reaction Past Psychological History: Bipolar, Depression Smoking Status: Never smoker Past Alcohol Use History: None Reported Past Drug Use History: None Reported
== END 2023-03-18 17:15 | disposition home or self-care (01) ==
LOC: EC 12:37 → 6NMEDSUR 15:02
PROVIDERS: ADMIT Hospitalist; ATTEND Hospitalist
DX: I95.1 Orthostatic hypotension (principal); I35.0 Nonrheumatic aortic (valve) stenosis; K21.9 Gastro-esophageal reflux disease without esophagitis; E78.5 Hyperlipidemia, unspecified; F31.9 Bipolar disorder, unspecified; I12.9 Hypertensive chronic kidney disease with stage 1 through stage 4 chronic kidney disease, or unspecified chronic kidney disease; N18.30 Chronic kidney disease, stage 3 unspecified; D63.1 Anemia in chronic kidney disease; S70.01XA Contusion of right hip, initial encounter; W19.XXXA Unspecified fall, initial encounter; R26.9 Unspecified abnormalities of gait and mobility; Z79.82 Long term (current) use of aspirin; Z79.899 Other long term (current) drug therapy; Z88.2 Allergy status to sulfonamides
CPT/HCPCS: 96361 ×3; 96360; 99285; 36415; 94760 ×2; 93005; 93017; 97162; 85379; 80053 ×2; 83735; 84484; 85025 ×2; 85610; 85730; 73502; 71046; 70450; 78452; G0378 ×3; A9500; J2785

== ENCOUNTER → 2023-11-16 | Outpatient (CLI) | payer MEDICARE | LOC: CPPFTMAIN 11:33 | PROVIDERS: ATTEND Family Medicine | DX: R06.09 Other forms of dyspnea | CPT/HCPCS: 94060; 94726; 94729 ==

== ENCOUNTER 2024-03-01 06:02 | Day surgery (SDC) | payer MEDICARE ==
[2024-03-01] MEDS ORDERED: LIDOCAINE 1% (10MG/ML) FOR IV START INTRADERMA PRN (06:23)
[2024-03-01] MEDS ORDERED: LACTATED RINGERS 1,000 ML IV SCH (06:23)
[2024-03-01 06:44] VITALS: TEMP 97.4
[2024-03-01] MEDS: LACTATED RINGERS 1,000 ML IV SCH (06:48)
[2024-03-01] MEDS: IV FLUID CONTINUATION 1,000 ML IV ONE (06:48)
[2024-03-01] MEDS ORDERED: PROPOFOL 10 MG/ML 20 ML VIAL IV ONE (07:04)
[2024-03-01] MEDS ORDERED: LIDOCAINE 2% (PF) 20 MG/ML 5 ML VIAL ONE (07:04)
--- NOTE | 2024-03-01 07:28 | P.PCN ---
Date of Procedure: 03/01/24 Procedure(s) Performed: Brief history: Patient is a pleasant 73-year-old pleasant white female scheduled for an elective upper endoscopy as well as colonoscopy as a part of evaluation of longstanding history of GERD and history of colon polyp. Her last colonoscopy was 3 years ago and was noted to have a tubular adenoma. Procedure performed: Esophagogastroduodenoscopy with biopsy Colonoscopy Preoperative diagnosis: Longstanding history of GERD History of colon polyps Anesthesia: MAC Procedure: After informed consent was obtained from the patient was brought into the endoscopy unit and IV sedation was administered by anesthesia under continuous monitoring. Initially upper endoscopy was done. The Olympus GF 160 video endoscope was inserted inserted into the mouth and esophagus intubated without any difficulty and was gradually advanced into the stomach and duodenum and carefully examined. The bulb and second part of the duodenum appeared normal. The scope was then withdrawn into the stomach adequately insufflated with air and upon careful examination there was a 2 cm broad-based submucosal polyp noted in the proximal antrum of the stomach and multiple biopsies were done from this area. Rest of the the antrum and body, cardia and fundus appeared normal. The scope was then withdrawn into the esophagus. The GE junction was located at 40 cm to the incisors. It appeared regular with no erythema erosions or ulcerations. Rest of the esophagus appeared normal. Patient tolerated the procedure well. At this time the patient continued to remain sedation. Initial digital rectal examination was normal. Olympus CF 160 video colonoscope was then inserted into the rectum and gradually advanced to the cecum without any difficulty. Careful examination was performed as the scope was gradually being withdrawn. The prep was excellent. The cecum, ascending colon, transverse colon, descending colon, sigmoid colon and rectum appeared normal. Retroflexion was performed in the rectum and no lesions were noted. Patient tolerated the procedure well. Impression: 1. Upper endoscopy revealed 2 cm broad-based submucosal polyp in the proximal antrum of the stomach status post multiple biopsies 2. Colonoscopy was within normal limits with no evidence of colorectal neoplasia Recommendations: Findings of this examination were discussed with the patient as well as her family. She was advised to follow with the biopsy results. She will be seen in the office in 1 to 2 weeks. Recommended repeat colonoscopy at age 80
[2024-03-01 08:01] VITALS: BP 127/77; PULSE 87; RESP 18
== END 2024-03-01 09:06 | disposition home or self-care (01) ==
LOC: ORWHC2ENDO 06:02
PROVIDERS: ATTEND Internal Medicine Gastroenterology
DX: Z12.11 Encounter for screening for malignant neoplasm of colon (principal); K31.7 Polyp of stomach and duodenum; K21.9 Gastro-esophageal reflux disease without esophagitis; E78.5 Hyperlipidemia, unspecified; I12.9 Hypertensive chronic kidney disease with stage 1 through stage 4 chronic kidney disease, or unspecified chronic kidney disease; N18.9 Chronic kidney disease, unspecified; I95.1 Orthostatic hypotension; F31.9 Bipolar disorder, unspecified; Z87.442 Personal history of urinary calculi; Z79.82 Long term (current) use of aspirin; Z79.899 Other long term (current) drug therapy; Z86.0101 Personal history of adenomatous and serrated colon polyps; Z90.49 Acquired absence of other specified parts of digestive tract; Z88.2 Allergy status to sulfonamides; Z98.890 Other specified postprocedural states
CPT/HCPCS: 88305; 43239; J2704; J2003; G0105; 45378

== ENCOUNTER → 2024-08-29 | Outpatient (CLI) | payer MEDICARE ==
[2024-08-29 21:16] LABS: Urine Creatinine 75.2 mg/dL (28.0-217.0)
== END | disposition home or self-care (01) ==
LOC: LABWHC1 12:24
PROVIDERS: ATTEND Family Medicine
DX: E11.65 Type 2 diabetes mellitus with hyperglycemia (principal)
CPT/HCPCS: 82043; 82570

== ENCOUNTER → 2024-09-18 | Outpatient (CLI) | payer MEDICARE ==
--- NOTE | 2024-09-18 13:52 | US ---
EXAMINATION TYPE: US kidneys/renal and bladder DATE OF EXAM: 09/18/2024 COMPARISON: US 2019 CLINICAL INDICATION: Female, 74 years old with history of N18.4 CKD; CKD stage 4 TECHNIQUE: Grayscale imaging of the bilateral kidneys and urinary bladder: FINDINGS: EXAM MEASUREMENTS: Right Kidney: 11.5 x 6.0 x 5.4 cm Left Kidney: 11.4 x 4.9 x 4.8 cm Exam is very limited due to gas and patient body habitus. Right Kidney: *Complex area seen at mid: 2.0 x 1.9 x 2.2 cm. *Hypoechoic area seen upper pole: 2.5 x 2.3 x 1.9 cm. Left Kidney: *Hyperechoic focus seen: 0.8 x 0.5 x 0.3 cm. *Complex area seen at mid: 4.6 x 3.2 x 2.4 cm. *Multiple complex areas seen throughout the kidney, not fully measured. --difficulty visualizing thes e areas Bladder: Appears anechoic. *Wall appears thickened, versus due to slightly underdistention of bladde r? Measures 5 mm. Bilateral Jets seen: Yes IMPRESSION: 1. No evidence for obstructive uropathy. 2. Probable bilateral renal cysts. Consider CT or MRI with IV contrast follow-up for complete evalua tion of the renal lesions. 3. Medical renal disease. [facility], , 09/18/2024 1:50 PM
[2024-09-18 16:01] LABS: Blood Urea Nitrogen 30.4 mg/dL (9.0-27.0); Calcium 9.1 mg/dL (8.7-10.3); Carbon Dioxide 21.6 mmol/L (21.6-31.8); Chloride 107 mmol/L (96-109); Glucose 139 mg/dL (70-110); Potassium 4.3 mmol/L (3.5-5.5); Sodium 141 mmol/L (135-145)
== END | disposition home or self-care (01) ==
LOC: RADUSWWP 09:48
PROVIDERS: ATTEND Internal Medicine Nephrology
DX: N18.4 Chronic kidney disease, stage 4 (severe) (principal); N28.89 Other specified disorders of kidney and ureter
CPT/HCPCS: 76770; 80048

== ENCOUNTER → 2024-09-29 | Outpatient (CLI) | payer MEDICARE ==
--- NOTE | 2024-10-02 07:50 | MM ---
Reason for Exam: Screening (asymptomatic). Last mammogram was performed 4 year(s) and 2 month(s) ago. Patient History: Menarche at age 13. Patient has no children. Postmenopausal. Risk Values: Beatriz 5 year model risk: 2.0%. NCI Lifetime model risk: 4.5%. Prior Study Comparison: 12/30/2017 Bilateral Screening Mammogram, [facility] . 08/13/2020 Bilateral Screening Mammogram, [facility] . Tissue Density: There are scattered areas of fibroglandular density. Findings: Analyzed By CAD. There is no suspicious group of microcalcifications or new suspicious mass in either breast. Overall Assessment: Benign, BI-RAD 2 Management: Screening Mammogram of both breasts in 1 year. . Patient should continue monthly self-breast exams. A clinical breast exam by your physician is recommended on an annual basis. This exam should not preclude additional follow-up of suspicious palpable abnormalities. Note on Beatriz scores and lifetime risk: 1. A Beatriz score greater than 3% is considered moderate risk. If this is the case, consider specialist referral to assess eligibility for a risk reducing agent. 2. If overall lifetime risk for the development of breast cancer is 20% or higher, the patient may qualify for future screening with alternating mammogram and breast MRI. [facility], , 10/02/2024 7:47 AM. Electronically signed and approved by: Nathan Coto M.D. Radiologis
== END | disposition home or self-care (01) ==
LOC: RADMAMWWP 14:18
PROVIDERS: ATTEND Family Medicine
DX: Z12.31 Encounter for screening mammogram for malignant neoplasm of breast (principal); R92.323 Mammographic fibroglandular density, bilateral breasts; Z78.0 Asymptomatic menopausal state
CPT/HCPCS: 77063; 77067